=== PATIENT | male | born 1960 | race Caucasian/White ===

== ENCOUNTER 2018-08-04 11:01 | Inpatient (IN) | payer OTHER ==
[2018-08-04] VITALS (13 sets, daily range): BP systolic 124–154; BP diastolic 73–83
[~2018-08-04] VITALS: Ht 175.3 cm; Wt 93.3 kg
[~2018-08-04 11:01] MED LIST: ASPIR 8181 M1 PO; CIPROFLOXACIN500 M1 PO; FLOMAX0.4 MG PO; METFORMIN HCL500 MG PO; PERCOCET 5-3251 EACH PO
--- NOTE | 2018-08-04 11:14 | NUR ---
SEE STEMI FLOW SHEET
[2018-08-04 11:20] LABS: ABSOLUTE BASOPHILS 0.1 thou/uL (0.0-0.2); ABSOLUTE EOSINOPHILS 0.1 thou/uL (0.0-0.7); ABSOLUTE MONOCYTES 0.9 thou/uL (0.0-1.2); ABSOLUTE NEUTROPHILS 5.5 thou/uL (1.6-8.1); EOSINOPHILS 1.1 %; HEMATOCRIT 43.4 % (42.0-52.0); HEMOGLOBIN 13.9 gm/dL (14.0-18.0); LYMPHOCYTES 23.6 %; MCH 20.4 pg (26.0-34.0); MCV 63.8 fL (80.0-100.0); MONOCYTES 10.4 %; MPV 9.5 fl. (7.2-11.1); NUCLEATED RBCS 0 /100WBC; PLATELET COUNT* 240 thou/uL (150-400); POLYS 63.9 %; RBC 6.81 mil/uL (4.50-6.00); RDW-CV 15.3 % (10.5-14.5); WBC 8.6 thou/uL (4.0-11.0)
--- NOTE | 2018-08-04 11:23 | NUR ---
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 ATTEMPT TO CONTACT JUAN DANIEL, DAUGHTER, AT [phone] WAS MADE BUT UNSUCCESSFUL.
--- NOTE | 2018-08-04 11:26 | NUR ---
PT WENT TO BOILER ASSISTANT OPERATOR AT 1125 WITH SOLITARIO GÓMEZ AND BOILER ASSISTANT OPERATOR RN.
[2018-08-04 11:28] LABS: ANION GAP 16 mmol/L (7-16); BUN 28 mg/dL (7-18); CHLORIDE 99 mmol/L (98-107); CO2 21 mmol/L (21-32); CREATININE 1.5 mg/dL (0.6-1.3); GLUCOSE 181 mg/dL (70-99); POTASSIUM 3.3 mmol/L (3.5-5.1); SODIUM 136 mmol/L (136-145)
[2018-08-04 11:29] LABS: APTT 23.9 Seconds (25.0-31.3); PROTIME 10.3 Seconds (9.20-11.50)
[2018-08-04 11:35] LABS: ALBUMIN 4.4 g/dL (3.4-5.0); ALKALINE PHOSPHATASE 61 U/L (46-116); CHOLESTEROL 234 mg/dL (<200); HDL CHOLESTEROL 50 mg/dL (>40); LDL CHOLESTEROL 166 mg/dL (<100); SERUM ASSESSMENT Clear; SGOT 17 U/L (15-37); SGPT 35 U/L (30-65); TC:HDL 4.7 Ratio (Not establshd); TOTAL BILIRUBIN 0.4 mg/dL (<0.1-1.0); TOTAL PROTEIN 7.6 g/dL (6.4-8.2); TRIGLYCERIDE 94 mg/dL (<150); TROPONIN-I LEVEL <0.06 ng/mL (<0.06); VLDL 19 mg/dL (<40)
[2018-08-04 12:10] LABS: PLATELET ESTIMATE ADEQUATE
[2018-08-04 12:11] LABS: GIANT PLATELETS FEW; POLYCHROMASIA Occasional
[2018-08-04 12:14] LABS: OVALOCYTES 1+
[2018-08-04 12:16] LABS: HYPOCHROMASIA 2+; SCHISTOCYTES Occasional
[2018-08-04 12:17] LABS: LARGE PLATELETS OCCASIONAL; TARGET CELLS 1+
[2018-08-04 12:21] LABS: POIKILOCYTOSIS 1+
--- NOTE | 2018-08-04 15:41 | EKG ---
[place] [address] ELECTROCARDIOGRAM REPORT Name: VALERI DYER Room: [address] ADM IN M.R.#: [id number] Admission: 08/04/18 Attend Phys: Reddy Robin MD Discharge: Date of : 62 Report #: [id number] THIS REPORT FOR: //name// [facility] ED Test Date: 2018-08-04 Test Time: 11:04:08 Pat Name: VALERI DYER Department: Room: [facility] Gender: M Access Specialist: TP : 1960 Requested By: Daly Polanco Order Number: [id number] MD: Raúl Cedillo Measurements Intervals [place] Rate: 155 P: 0 MA: QRS: -28 QRSD: 97 T: 57 QT: 301 QTc: 484 Interpretive Statements Supraventricular tachycardia Borderline left axis deviation Borderline low voltage, extremity leads Anteroseptal infarct, old ST depression, probably rate related Baseline wander in lead(s) V3 Compared to ECG 04/21/2016 23:54:07 ST (T wave) deviation now present Sinus rhythm no longer present Myocardial infarct finding still present Electronically Signed On 08-04-2018 15:41:30 ROOM SERVER by Raúl Cedillo [email or web address] <ELECTRONICALLY SIGNED> By: Raúl Cedillo MD, [facility] 08/04/18 1541 1104 1104 Raúl Cedillo MD, [facility] /EPI
--- NOTE | 2018-08-04 18:35 | CARD ---
[address] [address] CARDIAC CATH REPORT Name: VALERI DYER Room: [facility] IN .R.#: [id number] Admission: 08/04/18 Attend Phys: Reddy Robin MD Discharge: Date of : 62 Report #: [id number] THIS REPORT FOR: //name// APPROVED REPORT Study performed: 08/04/2018 11:19:27 Patient Details Patient Status: ED Room #: The patient is a 58 year-old male Event Personnel Lupe Guzman, Brittany Beyer RN Monitor, Omayra Kulkarni RN RN, Reddy Robin Deputy Sheriff/Investigator, , Raúl Cedillo Cryptographic Clerk Procedures Performed Left Heart Catheterization, PTCA with Stenting Indication Abnormal ECG, Chest pain Risk Factors Coronary Artery Disease Previous Procedures/Diagnoses Previous PCI Admission/Lab Medications/Medications given during procedure Aspirin, Glycoprotein IllbIlla Inhibitors, Heparin Unfract. Procedure Narrative The patient was brought emergently to the Cardiac Catheterization Laboratory and was prepped and draped in a sterile manner. The right femoral was infiltrated with 1% Lidocaine subcutaneous anesthesia. A 6Fr. Nabb Sheath sheath was inserted into the right femoral artery. Coronary angiography was performed using coronary diagnostic catheters. The right coronary system was accessed and visualized with a 6Fr JR4 catheter. The left coronary system was accessed and visualized with a 6Fr JL4 catheter. The left ventricle was accessed and visualized with a 6Fr Pigtail catheter. Left ventricular/Aortic Valve gradient assessed via catheter pullback. Left ventriculogram was performed in NICOLE projection. Closure device was deployed with a 6 Fr Angioseal STS 6Fr. The patient tolerated [place] [address] CARDIAC CATH REPORT Name: VALERI DYER Room: [address] IN [facility]#: [id number] Admission: 08/04/18 Attend Phys: Reddy Robin MD Discharge: Date of : 62 Report #: [id number] there were no complications associated with the procedure. There was no hematoma. Patient appeared to be in a supraventricular tachycardia at the start of the procedure. The patient was given 150 mg of IV amiodarone and converted to nsr. Intraoperative Conscious Sedation Fentanyl mcg Versed mg Dose: 1104 mGy Contrast Type and Amount: Omnipaque 300 ml Coronary Angiography The patient's coronary anatomy is co- dominant. Diagnostic Cath Left Main osital 40% LAD stented proximal, longer region, 30-40% instent stenosis, proximally, mid LAD diffuse 50-70%, apical lad gives collaterals to RCA Diagonal 1 medium sized Circumflex mid body 70%, medium sized vessel OM1 focal 70%, small vessel OM2 very small 90% proximally Right Coronary 95% proximal stenosis,mid 80%, distal 95% into pda R PDA 95% RPLV mild disease Left Ventriculography The left ventricle is normal in size with normal contractility. The left ventricular ejection fraction is estimated to be >55%. Left ventricular wall motion abnormalities are present. There is 4+ mitral insufficiency. Hemodynamics The aortic pressure is 82/61 mmHg with a mean of 66 mmHg. The left ventricular pressure is 118/10 mmHg with a mean of mmHg. The left ventricular end diastolic pressure is 19 mmHg. There was no gradient across the aortic valve upon pullback. Pullback from the left ventricle to the aorta revealed no gradient across the aortic valve. PCI Technique Lesion Anticoagulation was achieved with Heparin. bolus of IV aggrastat given Patient was preloaded with Brillinta. Percutaneous coronary intervention was performed on the distal right coronary artery. The lesion stenosis prior to intervention was 90%% with STEPHEN 3 [place] [address] CARDIAC CATH REPORT Name: VALERI DYER Room: [address] IN [facility]#: [id number] Admission: 08/04/18 Attend Phys: Reddy Robin MD Discharge: Date of : 62 Report #: [id number] 6FR JCR 4 100CM Guide Catheter was used to engage the RCA ostium. A IG: BMW 190cm Interventional Guidewire was used to cross the lesion. BALLOON DILATION A Balloon catheter Trek RX 2.5 X 8 was inserted and inflated up to 12.00atm for 14seconds. Repeat angiography revealed the following post-dilatation results: 40% stenosis. Additional Inflation: 16.00atm for 18seconds. STENT DEPLOYMENT A drug-eluting stent Xience Columba 2.5X15mm was inserted and inflated up to 16.00atm for 8seconds. Repeat angiography revealed the following post-stent deployment results: 0% stenosis. Final angiography reveals 0 % stenosis with STEPHEN 3 flow. PCI Technique Lesion 2 Percutaneous Coronary Intervention was performed on the mid right coronary artery. Patient was preloaded with Brillinta. Percutaneous coronary intervention was performed on the mid right coronary artery. The lesion stenosis prior to intervention was 80% with STEPHEN 3 flow. A 6 fr jcr4 Guide Catheter was used to engage the rca ostium. A bmw Interventional Guidewire was used to cross the lesion. Balloon Dilation A Balloon catheter Trek RX 2.5 X 8 was inserted and inflated up to 12.00atm for 9seconds. Repeat angiography revealed the following post-dilatation results: 30% stenosis. Stent Deployment A drug-eluting stent Xience Columba 3.0X15mm was inserted and inflated up to 12.00atm for 9seconds. Repeat angiography revealed the following post-stent deployment results: 0% stenosis. Final angiography reveals 0 % stenosis with STEPHEN 3 flow. PCI Technique Lesion 3 Percutaneous Coronary Intervention was performed on the proximal right coronary artery. Patient was preloaded with Brillinta. Percutaneous coronary intervention was performed on the proximal right coronary artery. The lesion stenosis prior to intervention was 90% with STEPHEN 3 flow. A jcr4 Guide Catheter was used to engage the rca ostium. A bmw Interventional Guidewire was used to cross the lesion. [address] [address] CARDIAC CATH REPORT Name: VALERI DYER Room: [facility] IN M.R.#: [id number] Admission: 08/04/18 Attend Phys: Reddy Robin MD Discharge: Date of : 62 Report #: [id number] Balloon Dilation A Balloon catheter Xience Columba 2.5X15mm was inserted and inflated up to 10.00atm for 16seconds. Repeat angiography revealed the following post-dilatation results: 40% stenosis. Stent Deployment A drug-eluting stent Xience Columba 3.0X12mm was inserted and inflated up to 10.00atm for 16seconds. Repeat angiography revealed the following post-stent deployment results: 0% stenosis. Additional Inflation: 15.00atm for 18seconds. Final angiography reveals 0 % stenosis with STEPHEN 3 flow. Conclusion 1. SVT ,converted in laborer pullet farm (IV amiodarone) 2. NSTEMI 3. severe disease of RCA 4. patent stent proximal LAD with moderate instent stenosis 5. severe appering mitral regurgitation 6. codominant circumflex with severe disease 7. successful placement of 3 drug eluting stents in the rca Recommendations Cardiac Rehabilitation Referral Aggressive Medical Therapy Medications Administered Ticagrelor Diagnostic Cath Approved by: Reddy Robin MD Date/Time: <ELECTRONICALLY SIGNED> By: Raúl Cedillo MD, FACC 08/04/181834 34 34Raúl Cedillo MD, FACC /INF
[2018-08-05] VITALS (14 sets, daily range): BP systolic 105–135; BP diastolic 61–77
[2018-08-05 04:23] LABS: ABSOLUTE EOSINOPHILS 0.1 thou/uL (0.0-0.7); ABSOLUTE LYMPHOCYTES 0.7 thou/uL (0.8-5.3); ABSOLUTE MONOCYTES 0.5 thou/uL (0.0-1.2); ABSOLUTE NEUTROPHILS 5.2 thou/uL (1.6-8.1); BASOPHILS 0.4 %; EOSINOPHILS 1.5 %; HEMATOCRIT 36.8 % (42.0-52.0); LYMPHOCYTES 10.7 %; MCH 20.6 pg (26.0-34.0); MCHC 32.7 g/dL (28.0-37.0); MCV 63.2 fL (80.0-100.0); MONOCYTES 8.4 %; MPV 9.1 fl. (7.2-11.1); NUCLEATED RBCS 0 /100WBC; PLATELET COUNT* 170 thou/uL (150-400); RBC 5.82 mil/uL (4.50-6.00); RDW-CV 15.2 % (10.5-14.5); WBC 6.5 thou/uL (4.0-11.0)
[2018-08-05 04:51] LABS: CALCIUM 8.1 mg/dL (8.5-10.1); CREATININE 0.9 mg/dL (0.6-1.3); POTASSIUM 4.1 mmol/L (3.5-5.1)
[2018-08-05 04:55] LABS: TROPONIN-I LEVEL 11.97 ng/mL (<0.06)
--- NOTE | 2018-08-05 05:37 | NUR ---
PATIENT PROGRESSING TOWARDS GOALS. NO ACUTE HEMODYNAMIC CHANGES OVERNIGHT. DENIES PAIN, N &V. PT RIGHT GROIN SITE INTACT NO HEMATOMA PRESENT. SALINE LOCKED @ MIDNIGHT PER DR. BRAGA. NC IN PLACE @ 2L PER OXYGEN PROTOCOL. TROPONIN ELEVATED THIS A.M WAS EXPECTED. PT VOIDS PER URNAL, UO ADEQUATE. NO VOICED CONCERNS AT THIS TIME. BED TO LOWEST POSITION. CALL LIGHT IN PLACE. WILL CONTINUE TO MONITOR.
[2018-08-05 05:51] LABS: HYPOCHROMASIA 2+; MICROCYTES 2+; POLYCHROMASIA 1+
[2018-08-05 05:52] LABS: ANISOCYTOSIS 2+; POIKILOCYTOSIS 1+
--- NOTE | 2018-08-05 11:34 | 2DMMODE ---
[place] [address] 2 D/M-MODE ECHOCARDIOGRAM Name: VALERI DYER Room: [address] IN [facility]#: [id number] Admission: 08/04/18 Attend Phys: Reddy Robin, Discharge: Date of : 62 Date of Service: 08/05/18 1134 Report #: [id number] THIS REPORT FOR: //name// APPROVED REPORT Study performed: 08/05/2018 10:06:34 EXAM: Comprehensive 2D, Doppler, and color-flow Echocardiogram Patient Location: In-Patient Room #: [facility] Status: routine BSA: 2.09 HR: 69 bpm BP: 124/67 mmHg Rhythm: NSR Other Information Study Quality: GoodFair Technically limited study due to bedside. Indications Chest Pain 2D Dimensions IVSd: 15.21 (7-11mm) LVOT Diam: 21.95 (18-24mm) LVDd: 48.88 mm PWd: 13.26 (7-11mm) Ascending Ao: 33.11 (22-36mm) LVDs: 29.17 (25-40mm) Aortic Root: 36.83 mm Volumes Left Atrial Volume (Systole) LA ESV Index: 30.60 mL/m2 Aortic Valve AoV Peak Timoteo.: 2.05 m/s AO Peak Gr.: 16.76 mmHg LVOT Max P.18 mmHg AO Mean Gr.: 10.03 mmHg LVOT Mean P.96 mmHg LVOT Max V: 1.34 m/s AO V2 VTI: 38.99 cm LVOT Mean V: 0.93 m/s FORTINO (VTI): 2.86 cm2 LVOT V1 VTI: 29.45 cm Mitral Valve E/A Ratio: 1.65 MV Decel. Time: 174.04 [place] [address] 2 D/M-MODE ECHOCARDIOGRAM Name: VALERI DYER Room: [facility] IN .R.#: [id number] Admission: 08/04/18 Attend Phys: Reddy Robin, Discharge: Date of : 62 Date of Service: 08/05/18 1134 Report #: [id number] MV E Max Timoteo.: 0.83 m/s MV PHT: 50.47 ms MVA (PHT): 4.36 cm2 TDI E/Lateral E': 6.92 E/Medial E': 9.22 Medial E' Timoteo.: 0.09 m/s Lateral E' Timoteo.: 0.12 m/s Pulmonary Valve PV Peak Timoteo.: 0.96 m/s PV Peak Gr.: 3.66 mmHg Tricuspid Valve RAP Estimate: 5.00 mmHg TR Peak Gr.: 22.72 mmHg RVSP: 27.00 mmHg PA Pressure: 27.00 mmHg Left Ventricle The left ventricle is normal size. There is normal LV segmental wall motion with exception of mild basal inferior hypokinesis Moderate concentric left ventricular hypertrophy. Left ventricular systolic function is normal. The left ventricular ejection fraction is within the normal range. LVEF is 60%. The left ventricular diastolic function is normal. Right Ventricle The right ventricle is normal size. The right ventricular systolic function is normal. Atria Left atrium is moderately dilated. The right atrium size is normal. Aortic Valve Aortic valve leaflets are sclerotic with decreased opening. No aortic regurgitation is present. Mild to moderate aortic stenosis. Mitral Valve The mitral valve is normal in structure. Mild mitral regurgitation. No evidence of mitral valve stenosis. Tricuspid Valve The tricuspid valve is normal in structure. Trace tricuspid regurgitation. No pulmonary hypertension[place] [address] 2 D/M-MODE ECHOCARDIOGRAM Name: AKUAJULIANNEVALERI Duran Mariposa Room: [address] IN [facility]#: [id number] Admission: 08/04/18 Attend Phys: Reddy Robin, Discharge: Date of : 62 Date of Service: 08/05/18 1134 Report #: [id number] The pulmonary valve is normal in structure. There is no pulmonic valvular regurgitation. Great Vessels The aortic root is normal in size. IVC is normal in size and collapses >50% with inspiration. Pericardium There is no pericardial effusion. <Conclusion> LVEF is 60%. There is normal LV segmental wall motion with exception of mild basal inferior hypokinesis Moderate concentric left ventricular hypertrophy. Left atrium is moderately dilated. Aortic valve leaflets are sclerotic with decreased opening. Mild to moderate aortic stenosis. No aortic regurgitation is present. No evidence of mitral valve stenosis. There is no mitral valve regurgitation noted. Mild mitral regurgitation. <ELECTRONICALLY SIGNED> By: Reddy Robin MD, FACC 08/05/18 1134 1134 1134 Reddy Robin MD, FACC /INF
--- NOTE | 2018-08-05 13:47 | EKG ---
[place] [address] ELECTROCARDIOGRAM REPORT Name: VALERI DYER Room: [address] ADM IN M.R.#: [id number] Admission: 08/04/18 Attend Phys: Reddy Robin MD Discharge: Date of : 62 Report #: [id number] THIS REPORT FOR: //name// [facility] Test Date: 2018-08-05 Test Time: 09:48:19 Pat Name: VALERI DYER Department: Room: [address] Gender: M Body Worker: : 1960 Requested By: Reddy Robin Order Number: [id number] Reading MD: Reddy Robin Measurements Intervals [place] Rate: 65 P: 7 [place]: 188 QRS: -61 QRSD: 116 T: 29 QT: 422 QTc: 439 Interpretive Statements Sinus rhythm Left anterior fascicular block Compared to ECG 08/04/2018 11:04:08 Left anterior fascicular block now present Supraventricular tachycardia no longer present Myocardial infarct finding no longer present ST (T wave) deviation no longer present Electronically Signed On 08-05-2018 13:47:52 GREEN CHAIN OFF BEARER by Reddy Robin [email or web address] <ELECTRONICALLY SIGNED> By: Reddy Robin MD, FACC 08/05/18 1347 0948 0948 Reddy Robin MD, FAC /EPI
--- NOTE | 2018-08-05 16:20 | NUR ---
PT DENIES CHEST PAIN OR SHORTNESS OF AIR. PT ON ROOM ROOM AIR SATTING >95%. VSS. AFEBRILE. VOIDING PER URINAL. PT SAT IN CHAIR FOR BREAKFAST. PT ENCOURAGED TO AMBULATE. PT REPORTS HE DOES NOT TAKE FLOMAX ANY MORE. HOME MEDICATION LIST UPDATED.
[2018-08-05 21:06] LABS: GLYCOHEMOGLOBIN (HGB A1C) 7.4 % (4.8-5.6)
[2018-08-06] VITALS: BP 110/67
[2018-08-06 04:00] VITALS: BP 101/59
--- NOTE | 2018-08-06 04:59 | NUR ---
ASSUMED CARE OF PT AFTER REPORT AT 1930. PT A&OX4. VS. PHYSICAL ASSESSMENT COMPLETED AND CHARTED. PT ON RA WITH 95% O2 SAT. PT TRACING SR ON TELE. PT UP ADLIB TO RESTROOM. POST CATH SITE TO RIGHT GROIN CLEAN, DRY & INTACT. MINOR BRUISING NOTED. DENIES ANY PAIN OR SOA. PT RESTED WELL ON BED. HOURLY ROUNDING OBSERVED. CALL LIGHT WITHIN REACH.
[2018-08-06 07:30] VITALS: BP 114/65
[2018-08-06 09:45] VITALS: BP 108/62
[2018-08-06 09:53] VITALS: BP 108/62
[2018-08-06] MEDS ORDERED: ATORVASTATIN CA40 MG PO (11:33)
[2018-08-06] MEDS ORDERED: CARVEDILOL3.125 MG PO (11:35)
[2018-08-06] MEDS ORDERED: ZETIA10 MG PO (11:35)
[2018-08-06] MEDS ORDERED: LISINOPRIL5 MG PO (11:36)
[2018-08-06] MEDS ORDERED: NITROGLYCERIN0.4 MG SUBLING (11:38)
[2018-08-06] MEDS ORDERED: BRILINTA90 MG PO (11:38)
--- NOTE | 2018-08-06 11:42 | NUR ---
MET WITH PT TO DISCUSS HOME SITUATION/DC PLANNING. PT LIVES WITH , WORKS AND IS INDEPENDENT AND ACTIVE. STATES WAS AT THE GYM WHEN STARTED HAVING SYMPTOMS. PT DENIES ANY DC NEEDS AND PLANS TO GO HOME TODAY. HE FOLLOWS WITH DR NAVA FOR PCP.
--- NOTE | 2018-08-06 12:29 | NUR ---
RECEIVED DISCHARGE ORDERS PER CARDIOLOGY. HOSPITALIST OK WITH DC TODAY. IV DISCONTINUED. CORPORATE BANKING OFFICER REMOVED AND RETURNED TO NURSE'S DESK. EDUCATED THE PT ON F/U APPT WITH CARDIOLOGY AND HIS PRIMARY. EDUCATED ON HOME MEDICATIONS. NEW SCRIPTS GIVEN WITH MED INFORMATION SHEETS. PATIENT AND HIS SPOUSE DENY ANY QUESTIONS OR CONCERNS AT DISCHARGE. HE IS LEAVING VIA AMBULATORY PER HIS REQUEST ACCOMPANIED BY NURSING STAFF AND HIS .
--- NOTE | 2018-08-13 12:44 | H ---
[place] [address] HISTORY AND PHYSICAL Name: VLAERI DYER Room: [address] IN M.R.#: [id number] Admission: 08/04/18 Attend Phys: Reddy Robin MD Discharge: 08/06/18 Date of : 62 Report #: [id number] THIS REPORT FOR: //name// CC: DAVI physician/PCP Reddy Robin DATE OF SERVICE: 08/04/2018 CHIEF COMPLAINT: Chest pain. HISTORY OF PRESENT ILLNESS: The patient is a 58-year-old man with a prior history of anterior UT, who presented via ambulance to [facility] with acute onset of chest pressure, dizziness and lightheadedness. He was noted to be in a supraventricular tachycardia with narrow complexes. The heart rates in the 160s on presentation, but had diffuse ST segment depression and ST elevation in lead AVR. Given his continued symptoms of angina, we elected to proceed directly with an urgent cardiac catheterization, which demonstrated patency of a previously placed stent to his left anterior descending coronary artery, but severe disease in his [place] right coronary artery and fairly significant mitral regurgitation. Clinically, the patient has been having chest pain off and on for the last few weeks. He has been compliant with his aspirin, but is not currently on any statin therapy, but he is treated for type 2 diabetes. His gear [facility]ter [facility] He reports that he has not really followed up with him in the last few years or so. He has been short of breath with activity. He denies orthopnea, PND or weight gain. PAST MEDICAL HISTORY: He has a history of diabetes, untreated sleep apnea, hyperlipidemia, which currently is not treated and coronary artery disease and remote UT. 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 FAMILY HISTORY: Positive for heart disease. REVIEW OF SYSTEMS: GASTROINTESTINAL: No nausea or vomiting. ALLERGIES: He denies any contrast allergies. HEMATOLOGIC: No anemia or bleeding disorders. RENAL: No history [place] [address] HISTORY AND PHYSICAL Name: VALERI DYER Room: [address] IN [facility]#: [id number] Admission: 08/04/18 Attend Phys: Reddy Robin MD Discharge: 08/06/18 Date of : 62 Report #: [id number] ENDOCRINE: Positive diabetes, positive hyperlipidemia. NEUROLOGIC: Denies headaches, blurry vision or slurred speech. GENERAL: No fevers or chills. PULMONARY: As above. No wheezing or cough. MEDICATIONS: He takes aspirin and Jardiance. PHYSICAL EXAMINATION: VITAL SIGNS: His blood pressure is in the one-teens/60s and a narrow complex tachycardia, heart rate in the 130s to 160s. GENERAL: This is an anxious middle-aged male. He is alert, though he is in moderate distress. HEENT: There is no evidence of facial asymmetry. Oral mucosa is moist. Tongue is midline. NECK: Supple, no jugular venous distention. Upstrokes are normal. CARDIOVASCULAR: Irregular, tachycardic. I cannot hear an S3. There is an apical murmur. LUNGS: Diminished breath sounds, but clear to auscultation. ABDOMEN: Soft, nontender. EXTREMITIES: No peripheral edema. Pulses, radial and dorsalis pedis pulses are symmetric and normal. ECG as noted above. LABORATORY DATA: Pending. IMPRESSION AND PLAN: 1. Non-ST elevation myocardial infarction. 2. Mitral regurgitation. 3. Coronary artery disease. 4. Supraventricular tachycardia, acute. 5. Respiratory insufficiency. At this point in time, we will proceed with treatment of his coronary artery disease to his right coronary artery and further evaluation with echocardiographic evaluation of his mitral valve apparatus will be undertaken and further treatment will be based on this. We will survey his lipids and treat accordingly. <ELECTRONICALLY SIGNED> By: Reddy Robin MD, FACC 08/13/18 1244 1211 1335Reddy Robin MD, FACC /nt
== END 2018-08-06 12:35 | disposition home or self-care (01) | DRG 246 ==
LOC: M.ERS 11:01 → M.CL 11:01 → M.ICU 11:23 → M.TBA-CV 11:23 → M.2W 11:23 → M.ICU 12:03 → M.2W 08-05 18:35
PROVIDERS: Personal Emergency Response Attendant; ADMIT Internal Medicine Cardiovascular Disease
PROC: 027036Z Dilation of Coronary Artery, One Artery with Three Drug-eluting Intraluminal Devices, Percutaneous Approach (ICD-10-PCS; principal; 2018-08-04)
PROC: 4A023N7 Measurement of Cardiac Sampling and Pressure, Left Heart, Percutaneous Approach (ICD-10-PCS; principal; 2018-08-04)
PROC: B2151ZZ Fluoroscopy of Left Heart using Low Osmolar Contrast (ICD-10-PCS; principal; 2018-08-04)
PROC: B2111ZZ Fluoroscopy of Multiple Coronary Arteries using Low Osmolar Contrast (ICD-10-PCS; principal; 2018-08-04)
DX: I21.4 Non-ST elevation (NSTEMI) myocardial infarction (principal); I50.31 Acute diastolic (congestive) heart failure; I47.1 Supraventricular tachycardia; G72.0 Drug-induced myopathy; E11.9 Type 2 diabetes mellitus without complications; E78.5 Hyperlipidemia, unspecified; I34.0 Nonrheumatic mitral (valve) insufficiency; R06.89 Other abnormalities of breathing; I25.10 Atherosclerotic heart disease of native coronary artery without angina pectoris; E66.9 Obesity, unspecified; I25.5 Ischemic cardiomyopathy; T50.995A Adverse effect of other drugs, medicaments and biological substances, initial encounter; I25.2 Old myocardial infarction; Z82.49 Family history of ischemic heart disease and other diseases of the circulatory system; Z95.5 Presence of coronary angioplasty implant and graft; Z79.82 Long term (current) use of aspirin; Z79.899 Other long term (current) drug therapy; Z68.30 Body mass index [BMI] 30.0-30.9, adult

== ENCOUNTER 2018-08-14 20:41 | Observation (INO) | payer OTHER ==
[~2018-08-14] VITALS: Ht 175.3 cm; Wt 94.8 kg
--- NOTE | ~2018-08-14 | CON ---
[address] [address] CONSULTATION Name: MANISHAVALERI Mariposa Room: [address] M.R.#: [id number] Admission: 08/14/18 Attend Phys: Maury Palencia MD Discharge: Date of : 62 Report #: [id number] THIS REPORT FOR: //name// CC: Maury De La Torre REQUESTING PHYSICIAN: Maury Palencia MD PRIMARY CARE PHYSICIAN: Freddie De La Torre MD CHIEF COMPLAINT: Palpitations. HISTORY OF PRESENT ILLNESS: The patient is a 58-year-old man who approximately 2 weeks ago had a STEMI requiring PCI to his right coronary artery in the acute setting. We are asked to see him because he had some symptoms of significant palpitation, but not chest pain that brought him to the Emergency Room. The patient had taken his usual medications, but without food. Also, he had drank more than his usual amount of coffee per day and had onset of resting palpitations. They were associated without chest pain or shortness of breath. He was worried though that he was having another heart attack. He presented to the Emergency Room, was noted to be in sinus rhythm. His ST segments were normal. He did have frequent PVCs, but no evidence of SVT or nonsustained ventricular tachycardia on telemetry monitoring overnight. He was mildly hypokalemic and was given potassium replacement. He did not take any diuretics, but he is on diabetic therapy with Jardiance. This morning, he is asymptomatic. PAST MEDICAL HISTORY: 1. Inferior STEMI. He has previously placed stents in the LAD, which are widely patent. 2. Hypertension, hyperlipidemia, diabetes. HOME MEDICATIONS: Include atorvastatin 40 mg daily, Brilinta 90 mg p.o. b.i.d., lisinopril 5 mg daily, Zetia 10 mg daily, Jardiance daily. ALLERGIES: He has no known drug allergies. SOCIAL HISTORY: He is nonsmoker, . REVIEW OF SYSTEMS: GENERAL: No fevers or chills. PULMONARY: No wheezing or cough. HEMATOLOGIC: No anemia or bleeding disorders. MUSCULOSKELETAL: No falls. NEUROLOGIC: No headaches, blurry vision, slurred speech, numbness, weakness [place] [address] CONSULTATION Name: VALERI DYER Room: [address]#: [id number] Admission: 08/14/18 Attend Phys: Maury Palencia MD Discharge: Date of : 62 Report #: [id number] PHYSICAL EXAMINATION: VITAL SIGNS: Blood pressure is 116/65, pulse is 97, sinus rhythm, temperature 36.8, respirations 19, and O2 sats 97% on room air. GENERAL: A pleasant adult male. He is alert, in no apparent distress. HEENT: Eyes: EOMs are intact. No facial asymmetry. NECK: Supple. No jugular venous distention. CARDIOVASCULAR: Regular. I cannot hear a murmur or S3. LUNGS: Clear to auscultation. ABDOMEN: Soft, nontender, nondistended. EXTREMITIES: No peripheral edema. SKIN: Warm and dry. PSYCHIATRIC: The patient has appropriate mood and affect. LABORATORY DATA: Potassium is 4.2. INR is 1.0. Hemoglobin is 13.6. Chest x-ray shows no acute cardiopulmonary abnormality. Echocardiogram 08/04/2018, ejection fraction was 60%, mild inferior hypokinesis, mild aortic stenosis. IMPRESSION AND PLAN: 1. Symptomatic premature ventricular contractions. I would continue with his current medical therapy. He was mildly hypokalemic, which may have been playing a role. 2. Coronary artery disease. He is ruled out for myocardial infarction and he reports no angina. We will continue with current medical therapy including Brilinta. 3. Mild aortic valve stenosis. 4. Diabetes mellitus. I would continue with Jardiance but I will put him on a low dose of potassium and instructed him to have potassium level checked. I instructed him to monitor his caffeine intake because this is a diuretic as well. By: 1210 1808Reddy Robin MD, FACC /nt
[~2018-08-14 20:41] MED LIST changes: +ATORVASTATIN CA40 MG PO; +BRILINTA90 MG PO; +CARVEDILOL3.125 MG PO; +LISINOPRIL5 MG PO; +NITROGLYCERIN0.4 MG SUBLING; +ZETIA10 MG PO
[2018-08-14 20:44] VITALS: BP 180/89
[2018-08-14] MEDS ORDERED: JARDIANCE10 MG PO (20:51)
[2018-08-14 21:13] LABS: ABSOLUTE EOSINOPHILS 0.2 thou/uL (0.0-0.7); ABSOLUTE LYMPHOCYTES 1.2 thou/uL (0.8-5.3); ABSOLUTE MONOCYTES 0.7 thou/uL (0.0-1.2); ABSOLUTE NEUTROPHILS 4.5 thou/uL (1.6-8.1); BASOPHILS 0.7 %; EOSINOPHILS 2.4 %; HEMATOCRIT 41.7 % (42.0-52.0); HEMOGLOBIN 13.6 gm/dL (14.0-18.0); LYMPHOCYTES 18.3 %; MCH 20.5 pg (26.0-34.0); MCHC 32.8 g/dL (28.0-37.0); MCV 62.5 fL (80.0-100.0); MONOCYTES 11.2 %; NUCLEATED RBCS 0 /100WBC; PLATELET COUNT* 208 thou/uL (150-400); POLYS 67.4 %; RBC 6.67 mil/uL (4.50-6.00); WBC 6.7 thou/uL (4.0-11.0)
[2018-08-14 21:24] LABS: ALBUMIN 4.4 g/dL (3.4-5.0); CALCIUM 9.3 mg/dL (8.5-10.1); CREATININE 1.3 mg/dL (0.6-1.3); POTASSIUM 3.4 mmol/L (3.5-5.1); TOTAL BILIRUBIN 0.3 mg/dL (<0.1-1.0); TROPONIN-I LEVEL 0.07 ng/mL (<0.06)
[2018-08-14 22:35] LABS: ANISOCYTOSIS Occasional; MICROCYTES 3+; OVALOCYTES Occasional
[2018-08-14 22:36] LABS: PLATELET ESTIMATE ADEQUATE
[2018-08-14 23:35] VITALS: BP 140/81
[2018-08-14 23:50] VITALS: BP 143/77
--- NOTE | 2018-08-15 00:47 | NUR ---
PT ADMITTED TO ROOM 213 AT 2345 FOR DYSPNEA AND PALPITATIONS. PT REPORTS WATCHING IntY GAME AND FELT HIS HEART SKIPPING BEATS AT 2030. PT HAD RECENT CARDIAC CATHETERIZATION WITH STENTS X 3 TO RCA ON 08/06/18. ESTEFANYINI ON MONITOR. POTASSIUM LEVEL 3.4. PHYSICAN PAGED.
--- NOTE | 2018-08-15 01:06 | NUR ---
NO RESPONSE FROM HOSPITALIST. WASHERETTE MACHINE OPERATOR PAGED REGARDING POTASSIUM LEVEL AT 3.4. BIGEMINY SEEN ON MONITOR. BLOOD PRESSURE AND O2 SAT WITHIN NORMAL LIMITS. NO CHEST TIGHTNESS, PRESSURE OR PAIN NOTED. PT REPORTS FEELING OK EXCEPT FOR HEART SKIPPING BEATS.
--- NOTE | 2018-08-15 01:23 | NUR ---
RECIEVED CALL FROM DR BROWN. INFORMED REGARDING ECTOPY ON MONITOR AND LOW POTASSIUM LEVEL. RECIEVED ORDERS FOR ELECTROLYTE PROTOCOL.
--- NOTE | 2018-08-15 01:35 | NUR ---
PT GIVEN 40 MEQ KCL PO. TEACHING DONE REGARDING ARRYTHMIA'S ASSOCIATED WITH ELECTROLYTE IMBALANCE.
--- NOTE | 2018-08-15 06:33 | NUR ---
PT RECIEVED TOTAL 80MEQ KCL. POTASSIUM LEVEL WITHIN NORMAL LIMITS. PT NO LONGER IN BIGEMINY. OCCASIONAL PVC'S NOTED. DR MAKI UPDATED THIS AM REGARDING EVENTS LEADING TO ADMISSION AND TREATMENT. VITAL SIGNS WITHIN NORMAL LIMITS. WILL CONTINUE TO MONITOR.
[2018-08-15 08:00] VITALS: BP 107/66
--- NOTE | 2018-08-15 11:39 | NUR ---
EAMON REPORT FROM GRAHAM AND ASSUMED CARE OF PT @ 6730.PT IS A/OX4,VSS,TRACING SR WITH PVC ON THE MONITOR.PT REMAINS ON 2L O2.ASSESSMENT CHARTED.IV PATENT AND SALINE LOCKED.PT IS ANXIOUS TO SEE THE OPERATOR SPECIALIST COMMUNICATIONS BUT IS COOPERATIVE WITH NO C/O PAIN.PT IS UP AD RALPH IN ROOM.LEFT RESTING IN BED WITH CALL LIGHT WITHIN REACH.WILL CONTINUE TO MONITOR.
[2018-08-15 12:00] VITALS: BP 116/65
[2018-08-15 13:03] VITALS: BP 116/65
[2018-08-15] MEDS ORDERED: KLOR-CON 1010 MEQ PO (13:07)
--- NOTE | 2018-08-15 13:35 | NUR ---
PT OK FOR DISCHARGE.DISCHARGE PAPERWORK COMPLETED AND GIVEN TO THE PT.SCRIPT GIVEN WITH EDUCATION.IV REMOVED.HEART MONITOR REMOVED AND RETURNED TO NURSING STATION.ALL PERSONAL BELONGINGS PACKED AND TAKEN WITH PT.PT WHEELED OUT BY NURSING STAFF TO PERSONAL VEHICLE.
--- NOTE | 2018-08-15 13:49 | EKG ---
[place] [address] ELECTROCARDIOGRAM REPORT Name: VALERI DYER Room: [address]R.#: [id number] Admission: 08/14/18 Attend Phys: Maury Palencai MD Discharge: Date of : 62 Report #: [id number] THIS REPORT FOR: //name// [facility] ED Test Date: 2018-08-14 Test Time: 20:47:32 Pat Name: VALERI DYER Department: Room: [facility] Gender: M Industrial Machinery Mechanic: Yeny REGAN : 1960 Requested By: Juliette Hickey Order Number: [id number] MD: Reddy Robin Measurements Intervals [place] Rate: 77 P: 29 CA: 190 QRS: -55 QRSD: 106 T: 99 QT: 402 QTc: 455 Interpretive Statements Sinus rhythm LAD, consider left anterior fascicular block Anteroseptal infarct, old Borderline repolarization abnormality Compared to ECG 08/05/2018 09:48:19 Myocardial infarct finding now present Electronically Signed On 08-15-2018 13:49:26 CORROSION ENGINEER by Reddy Robin [email or web address] <ELECTRONICALLY SIGNED> By: Reddy Robin MD, FAC 08/15/18 1349 46 46 Reddy Robin MD, FAC /EPI
== END 2018-08-15 13:28 | disposition home or self-care (01) ==
LOC: M.ERS 20:41 → M.2W 22:36 → M.TBA-ER 22:36 → M.2W 23:19
PROVIDERS: Emergency Medicine; ADMIT Internal Medicine
DX: I49.3 Ventricular premature depolarization (principal); R00.8 Other abnormalities of heart beat; E87.6 Hypokalemia; I25.10 Atherosclerotic heart disease of native coronary artery without angina pectoris; I21.4 Non-ST elevation (NSTEMI) myocardial infarction; I25.5 Ischemic cardiomyopathy; I10 Essential (primary) hypertension; E11.9 Type 2 diabetes mellitus without complications; E78.5 Hyperlipidemia, unspecified; I34.0 Nonrheumatic mitral (valve) insufficiency; I35.0 Nonrheumatic aortic (valve) stenosis; Z79.82 Long term (current) use of aspirin; Z79.899 Other long term (current) drug therapy

== ENCOUNTER 2018-09-09 08:56 | Observation (INO) | payer OTHER ==
[2018-09-09] VITALS (12 sets, daily range): BP systolic 103–152; BP diastolic 63–84
[~2018-09-09] VITALS: Ht 152.4 cm; Wt 87.5 kg
[~2018-09-09 08:56] MED LIST changes: +JARDIANCE10 MG PO; +KLOR-CON 1010 MEQ PO; +PERCOCET PO
[2018-09-09 09:25] LABS: HEMATOCRIT 41.3 % (42.0-52.0); HEMOGLOBIN 13.4 gm/dL (14.0-18.0); MCH 20.6 pg (26.0-34.0); MCHC 32.4 g/dL (28.0-37.0); MCV 63.7 fL (80.0-100.0); MPV 9.4 fl. (7.2-11.1); RBC 6.48 mil/uL (4.50-6.00); RDW-CV 15.3 % (10.5-14.5); WBC 5.3 thou/uL (4.0-11.0)
[2018-09-09 09:39] LABS: APTT 26.1 Seconds (25.0-31.3); PROTIME 10.6 Seconds (9.20-11.50)
[2018-09-09 09:40] LABS: ANION GAP 8 mmol/L (7-16); BUN 19 mg/dL (7-18); CALCIUM 9.1 mg/dL (8.5-10.1); CHLORIDE 99 mmol/L (98-107); CO2 29 mmol/L (21-32); GLUCOSE 169 mg/dL (70-99); POTASSIUM 4.1 mmol/L (3.5-5.1); SODIUM 136 mmol/L (136-145)
[2018-09-09 09:44] LABS: ALBUMIN 4.4 g/dL (3.4-5.0); ALKALINE PHOSPHATASE 62 U/L (46-116); CHOLESTEROL 108 mg/dL (<200); HDL CHOLESTEROL 52 mg/dL (>40); LDL CHOLESTEROL 45 mg/dL (<100); SGOT 28 U/L (15-37); SGPT 56 U/L (30-65); TC:HDL 2.1 Ratio (Not establshd); TOTAL BILIRUBIN 0.8 mg/dL (<0.1-1.0); TOTAL PROTEIN 7.6 g/dL (6.4-8.2); TRIGLYCERIDE 57 mg/dL (<150); VLDL 11 mg/dL (<40)
[2018-09-09 09:51] LABS: SERUM ASSESSMENT Clear
--- NOTE | 2018-09-09 15:26 | NUR ---
REPORT RECEIVED FROM CARDIAC CATH NURSE. PT ARRIVED ON FLOOR AT 1430 WITH . IN BED ON BEDREST FOR 6 HOURS. R GROIN SITE IS INTACT, NO BLEEDING. JUST SORE TO TOUCH. IV FLUID INFUSING AT 100CC PER HOUR . SR ON SOFTWARE ANALYST. LUNCH OFFERED. SCDS IN PLACE. WILL CONTINUE TO MONITOR NEUROVASCULAR STATUS AND VITAL SIGNS.
--- NOTE | 2018-09-09 15:42 | EKG ---
[place] [address] ELECTROCARDIOGRAM REPORT Name: VALERI DYER GEOVANNA Room: [address] M.R.#: [id number] Admission: 09/09/18 Attend Phys: Virgil Goff MD, Discharge: Date of : 62 Report #: [id number] THIS REPORT FOR: //name// [facility] Test Date: 2018-09-09 Test Time: 10:18:49 Pat Name: VALERI DYER Department: Room: [facility] Gender: M Quality Engineer Medical Device: : 1960 Requested By: Virgil Goff Order Number: [id number] Turner MD: Virgil Goff Measurements Intervals [place] Rate: 66 P: -13 [place]: 194 QRS: -63 QRSD: 100 T: -24 QT: 403 QTc: 423 Interpretive Statements Sinus rhythm Left anterior fascicular block Probable anterior infarct, age indeterminate Compared to ECG 08/14/2018 20:47:32 No significant changes Electronically Signed On 09-09-2018 15:41:48 BIOMASS TECHNICIAN by Virgil Goff [email or web address] <ELECTRONICALLY SIGNED> By: Virgil Goff MD, [facility] 09/09/18 1541 1018 1018 Virgil Goff MD, [facility] /EPI
--- NOTE | 2018-09-09 15:44 | EKG ---
[place] [address] ELECTROCARDIOGRAM REPORT Name: VALERI DYER Room: [address] M.R.#: [id number] Admission: 09/09/18 Attend Phys: Virgil Goff MD, Discharge: Date of : 62 Report #: [id number] THIS REPORT FOR: //name// [facility] Test Date: 2018-09-09 Test Time: 13:55:10 Pat Name: VALERI DYER Department: Room: [facility] Gender: M V/Stol Landing Signal Officer: : 1960 Requested By: Virgil Goff Order Number: [id number] Turner MD: Virgil Goff Measurements Intervals [place] Rate: 75 P: -5 [place]: 189 QRS: -60 QRSD: 100 T: -11 QT: 410 QTc: 458 Interpretive Statements Sinus rhythm Left anterior fascicular block Low voltage, extremity leads Abnormal R-wave progression, late transition Compared to ECG 08/14/2018 20:47:32 Low QRS voltage now present Myocardial infarct finding no longer present Electronically Signed On 09-09-2018 15:44:22 HOLTER TECHNICIAN by Virgil Goff [email or web address] <ELECTRONICALLY SIGNED> By: Virgil Goff MD, [facility] 09/09/18 1544 [id number] [id number] Virgil Goff MD, [facility] /EPI
[2018-09-10] VITALS (8 sets, daily range): BP systolic 110–134; BP diastolic 65–72
[2018-09-10 05:42] LABS: HEMATOCRIT 37.7 % (42.0-52.0); HEMOGLOBIN 12.1 gm/dL (14.0-18.0); MCH 20.4 pg (26.0-34.0); MCHC 32.2 g/dL (28.0-37.0); MCV 63.5 fL (80.0-100.0); MPV 9.3 fl. (7.2-11.1); RBC 5.95 mil/uL (4.50-6.00); RDW-CV 15.4 % (10.5-14.5); WBC 5.3 thou/uL (4.0-11.0)
[2018-09-10 05:55] LABS: ALBUMIN 3.7 g/dL (3.4-5.0); CALCIUM 8.5 mg/dL (8.5-10.1); CREATININE 0.9 mg/dL (0.6-1.3); TOTAL BILIRUBIN 0.6 mg/dL (<0.1-1.0); TOTAL PROTEIN 6.5 g/dL (6.4-8.2); TROPONIN-I LEVEL 0.09 ng/mL (<0.06)
--- NOTE | 2018-09-10 10:26 | EKG ---
[place] [address] ELECTROCARDIOGRAM REPORT Name: VALERI DYER Room: [address] M.R.#: [id number] Admission: 09/09/18 Attend Phys: Virgil Goff MD, Discharge: Date of : 62 Report #: [id number] THIS REPORT FOR: //name// [facility] Test Date: 2018-09-10 Test Time: 08:05:56 Pat Name: VALERI DYER Department: Room: [facility] Gender: M Behavioral Therapy Coordinator: : 1960 Requested By: Virgil Goff Order Number: [id number] Reading MD: Reddy Robin Measurements Intervals [place] Rate: 59 P: -11 SC: 211 QRS: -58 QRSD: 111 T: -23 QT: 433 QTc: 429 Interpretive Statements Sinus rhythm Prolonged SC interval Left anterior fascicular block Borderline low voltage, extremity leads Compared to ECG 09/09/2018 13:55:10 First degree AV block now present Electronically Signed On 09-10-2018 10:25:51 ADJUSTER ARBITRATOR by Reddy Robin [email or web address] <ELECTRONICALLY SIGNED> By: Reddy Robin MD, [facility] 09/10/18 1025 4 4 Reddy Robin MD, [facility] /EPI
--- NOTE | 2018-09-10 10:29 | NUR ---
RECEIVED REPORT FROM [facility] NURSE. ASSUMED CARE OF PT AROUND 07. PT A&OX4, VSS. PROGRAM REVIEW DIRECTOR IN PLACE TRACING SR. AM ASSESSMENT AND VITALS COMPLETED CHARTED. IV TO RIGHT AC/FA INTACT AND SALINE LOCKED. PT DENIES PAIN OR DISCOMFORT. RIGHT GROIN CATH SITE CDI, NO HEMATOMA. DRIED OOZING PRESENT ON DRESSING AND MARKED. CARDIIOLOGY PLANNING TO DC PT TODAY. PT AWAITING HEMOGLOBIN A1C RESULTS. LOW FALL PRECAUTIONS IN PLACE. CALL LIGHT IS WITHIN REACH. WCTM.
--- NOTE | 2018-09-10 11:16 | CARD ---
[address] [address] CARDIAC CATH REPORT Name: VALERI DYER Room: [address] M.R.#: [id number] Admission: 09/09/18 Attend Phys: Virgil Goff MD, Discharge: Date of : 62 Report #: [id number] THIS REPORT FOR: //name// APPROVED REPORT Study performed: 09/09/2018 11:26:09 Patient Details The patient is a 58 year-old male Event Personnel Omayra Kulkarni RN Manager [employer] John Molding Plasterer, Hollis Freeman Monitor, Flavio Brown (R) Narcisa Ochoa Jessica RTR Monitor Procedures Performed Left heart catheterization left ventriculography selective coronary arteriography and percutaneous coronary intervention with deployment of drug-eluting stents in the first marginal branch of the circumflex and the proximal circumflex Indication Chest pain, Status post recent inferior infarction Risk Factors Family History, Hypercholesterolemia, Hypertension Previous Procedures/Diagnoses Previous PCI, Previous ND Admission/Lab Medications/Medications given during procedure Angiomax IV 13 mg per kg, Angiomax Drip IV 30.45 ml per hr, Ticagrelor PO 180 mg Procedure Narrative The patient was brought electively to the Cardiac Catheterization Laboratory and was prepped and draped in a sterile manner. The right femoral was infiltrated with subcutaneous anesthesia. A Jackson 6 FR sheath was inserted into the right femoral artery. Coronary angiography was performed using coronary diagnostic catheters. The right coronary system was accessed and visualized with a Diagnostic 6Fr JR4 catheter. The left coronary system was accessed and visualized with a Diagnostic 6Fr JL4 catheter. The left ventricle was accessed and visualized with a Diagnostic 6Fr straight pigtail catheter. Left ventricular/Aortic [place] [address] CARDIAC CATH REPORT Name: VALERI DYER Room: [address] M..#: [id number] Admission: 09/09/18 Attend Phys: Virgil Goff MD, Discharge: Date of : 62 Report #: [id number] catheter pullback. Left ventriculogram was performed in NICOLE projection. Pre-demployment femoral angiogram was performed . Closure device was deployed with a Fr 6Fr angioseal. Hemostasis was obtained with manual pressure following sheath removal without any complications. The patient tolerated the procedure well and there were no complications associated with the procedure. There was no hematoma. Intraoperative Conscious Sedation Sedation start time: 1146 Case end Time: 1239 Fentanyl 50 mcg Versed 2 mg Fluoro Time: 14.7 minutes Dose: DAP 248492 cGycm2 3269 mGy Contrast Type and Amount: Visipaque 500 ml Diagnostic Cath Left Main 30% distal narrowing LAD 30% proximal and mid vessel narrowing with a patent proximal LAD stent Circumflex 80% heavily calcified stenosis of the proximal portion of the circumflex with 75% tubular calcified narrowing of the proximal portion of the first marginal branch Right Coronary 40 percent proximal narrowing with 30% distal narrowing of this dominant vessel with total occlusion of a posterolateral branch with zyls-ia-mondl collaterals filling that posterolateral branch in retrograde fashion Left Ventriculography The left ventricle is normal in size with normal contractility. The left ventricular ejection fraction is estimated to be 60%. Left ventricular wall motion abnormalities are not present. There is no mitral insufficiency. Hemodynamics The aortic pressure is 121/64 mmHg with a mean of 86 mmHg. The left ventricular pressure is 115/1 mmHg with a mean of mmHg. The left ventricular end diastolic pressure is 12 mmHg. There was no gradient across the aortic valve upon pullback. PCI Technique Lesion Anticoagulation was achieved with Angiomax. Percutaneous coronary intervention was performed on the first obtuse marginal branch segment. The lesion stenosis prior to intervention was 75% with STEPHEN 3 flow. A 6F XB LAD 3.5 Guide Catheter was used [place] [address] CARDIAC CATH REPORT Name: VALERI DYER Room: [address] M.R.#: [id number] Admission: 09/09/18 Attend Phys: Virgil Goff MD, Discharge: Date of : 62 Report #: [id number] A BMW 190cm Interventional Guidewire was used to cross the lesion. BALLOON DILATION A Balloon catheter NC Trek RX 2.5 X 12 was inserted and inflated up to 16.00atm for 10seconds. Additional Inflation: 0.00atm for 0seconds. Additional Inflation: 22.00atm for 14seconds. STENT DEPLOYMENT A drug-eluting stent [place] RX Stent 2.68J35wg was inserted and inflated up to 10.00atm for 19seconds. Additional Inflation: 14.00atm for 9seconds. Final angiography reveals 0 % stenosis with STEPHEN 3 flow. PCI Technique Lesion 2 Percutaneous Coronary Intervention was performed on the proximal circumflex artery segment. The lesion stenosis prior to intervention was 80% with STEPHEN 3 flow. A 6F XB LAD 3.5 Guide Catheter was used to engage the ostium. A BMW 190cm Interventional Guidewire was used to cross the lesion. Balloon Dilation A Balloon catheter NC Trek RX 2.25x12 was inserted and inflated up to 16.00atm for 6seconds. Additional Inflation: 20.00atm for 6seconds. Additional Inflation: 22.00atm for 11seconds. Stent Deployment A drug-eluting stent Estuardo RX Stent 2.84S13zu was inserted and inflated up to 12.00atm for 9seconds. Additional Inflation: 16.00atm for 9seconds. Additional Inflation: 17.00atm for 9seconds. Post Stent Deployment Balloon Dilation A Balloon catheter NC Trek RX 2.25x12 was inserted and inflated up to 20.00atm for 10seconds. Additional Inflation: 22.00atm for 7seconds. Final angiography reveals 10 % stenosis with STEPHEN 3 flow. Conclusion #1 significant coronary arteries characterized by the following: A 30% distal left main coronary artery narrowing B 30% proximal and mid LAD narrowing with a patent proximal LAD [address] [address] CARDIAC CATH REPORT Name: VALERI DYER Room: [facility] M.R.#: [id number] Admission: 09/09/18 Attend Phys: Virgil Goff MD, Discharge: Date of : 62 Report #: [id number] stent C prominent though nondominant circumflex with 80% calcified proximal circumflex stenosis and 75% tubular narrowing of the prominent first marginal branch of the circumflex D dominant right coronary artery with 40% proximal 30% distal narrowing with total occlusion of a terminal posterolateral branch with ixpv-me-zqpnz collaterals filling that branch #2 normal left ventricular systolic function, estimate ejection fraction being 60% #3 normal left-sided hemodynamics study #4 successful percutaneous coronary intervention with deployment of drug-eluting stents at the sites of 75% tubular first marginal narrowing and 80% heavily calcified proximal circumflex stenosis with 0 and 10% residual narrowings following stent deployment and STEPHEN-3 flow to both distal circulations Recommendations Cardiac Risk Reduction Program Aggressive Medical Therapy Medications Administered Ticagrelor Diagnostic Cath Approved by: Virgil Goff MD Date/Time: 09/10/2018 11:14:55 <ELECTRONICALLY SIGNED> By: Virgil Goff MD, [facility] 09/10/18 1116 1116 [id number] Goff MD, [facility] /INF
--- NOTE | 2018-09-10 11:32 | D ---
[address] [address] DISCHARGE SUMMARY Name: VALERI DYER Room: [address] M.R.#: [id number] Admission: 09/09/18 Attend Phys: Virgil Goff MD, Discharge: Date of : 62 Report #: [id number] THIS REPORT FOR: //name// CC: Virgil Robin Freddie [place] DATE OF SERVICE: 09/10/2018 FINAL DISCHARGE DIAGNOSES: 1. Coronary artery disease, status post recent myocardial infarction. 2. Status post recent inferior wall myocardial infarction. 3. Status post percutaneous coronary intervention of the circumflex on 09/09/2018. 4. Hypertension. 5. Hyperlipidemia. 6. Type 2 diabetes. PROCEDURES: 09/09/2018 -- left heart catheterization, left ventriculography, selective coronary arteriography, percutaneous coronary intervention of the circumflex with deployment of drug-eluting stents in the first marginal branch of the circumflex and the proximal circumflex. The patient is a very pleasant 58-year-old male with a history of recent inferior infarction and remote anterior infarction. The recent one was acutely approached with stenting of the right coronary artery and the initial infarction was approached with acute stenting of the LAD. He was noted to have significant circumflex stenosis at the last catheterization which was not undertaken in the acute setting. The patient has underlying hypertension, hyperlipidemia and type 2 diabetes. He was admitted on 09/09/2018 for recatheterization, which revealed widely patent right coronary stents with total occlusion of the posterolateral branch with left to right collaterals filling that branch. There was a patent proximal LAD stent with 40% mid LAD narrowing. The circumflex revealed 80% proximal stenosis with 75% first marginal narrowing. I deployed one 2.75 x 12 mm [place] drug-eluting stent in the first marginal and one 2.25 x 18 mm Estuardo Medtronic drug-eluting stent in the proximal circumflex with 0 and 10% residual narrowing respectively and STEPHEN 3 flow of the distal vessel. The patient did well post-procedurally and ambulated in the hallways without difficulty with good hemostasis at the right femoral site of catheterization. Laboratory on 09/10/2018 revealed a sodium 138, potassium 4.1, BUN 14, creatinine 0.9, hemoglobin 12.1, white blood cell count 5300 with 141,000 [place] [address] DISCHARGE SUMMARY Name: VALERI DYER Room: [address]#: [id number] Admission: 09/09/18 Attend Phys: Virgil Goff MD, Discharge: Date of : 62 Report #: [id number]. Troponin was inconsequentially increased at 0.09. He ambulated without difficulty and as noted above there was good hemostasis at the right femoral site of catheterization. He was discharged to home on the following medications: Aspirin 81 mg daily, atorvastatin 40 mg at bedtime, carvedilol 3.125 mg b.i.d., Zetia 10 mg daily, Jardiance 10 mg daily, lisinopril 5 mg daily, metformin 500 mg b.i.d. to be resumed on 09/13/2018, ticagrelor or Brilinta 90 mg b.i.d., potassium chloride 10 mEq daily, p.r.n. sublingual nitroglycerin and oxycodone as needed for pain. He is scheduled to see, Mary Nunes, our nurse practitioner on 09/20/[address] Robin in 6 weeks for his continuing care. The aforementioned issues were discussed with the patient. Thus, the patient is discharged to home in stable condition on the aforementioned medications with followup as iterated above. Discharged from Room 207 on 09/10/2018. <ELECTRONICALLY SIGNED> By: Virgil Goff MD, FACC 09/10/18 1132 1012 1039Virgil Goff MD, FACC /nt
--- NOTE | 2018-09-10 13:07 | NUR ---
DISCHARGE ORDERS RECEIVED. DISCHARGE COMPELTED DOCUMENTED. DISCAHRGE SUMMARY GONE OVER WITH PT AND PT'S SPOUSE. PT COMMUNICATES UNDERSTANDING. PT CLEAR TO RETURN TO CARDIAC REHAB. ALL BELONGINGS GATHERED AND SENT WITH PT. IV AND FRUIT TRIMMER REMOVED. ALL NEEDS MET AT TIME OF DC. PT AWARE OF FOLLOW UP APPOINTMENTS. PT LEFT UNIT WITH NURSING STAFF. PT LEFT FACILITY IN CAR WITH SPOUSE.
[2018-09-10 23:12] LABS: GLYCOHEMOGLOBIN (HGB A1C) 7.1 % (4.8-5.6)
== END 2018-09-10 13:00 | disposition home or self-care (01) ==
LOC: M.CL 08:56 → M.TBA-CV 13:09 → M.2W 13:09
PROVIDERS: ADMIT Internal Medicine
DX: I25.10 Atherosclerotic heart disease of native coronary artery without angina pectoris (principal); I25.2 Old myocardial infarction; I10 Essential (primary) hypertension; E78.5 Hyperlipidemia, unspecified; E11.9 Type 2 diabetes mellitus without complications; Z79.01 Long term (current) use of anticoagulants; Z79.899 Other long term (current) drug therapy

== ENCOUNTER → 2018-12-07 | Outpatient (CLI) | payer OTHER ==
--- NOTE | 2018-12-07 16:44 | 2DMMODE ---
[place] [address] 2 D/M-MODE ECHOCARDIOGRAM Name: AKUAJULIANNERogerVALERI AUSTIN Room: [facility]#: [id number] Admission: 12/07/18 Attend Phys: DONNIE Dale Discharge: Date of : 62 Date of Service: 12/07/18 1644 Report #: [id number] THIS REPORT FOR: //name// APPROVED REPORT Study performed: 12/07/2018 09:23:53 EXAM: Limited 2D Echocardiogram Patient Location: Out-Patient BSA: 2.04 HR: 65 bpm BP: 124/67 mmHg Other Information Study Quality: Good Indications Aortic Valve Disease 2D Dimensions LVOT Diam: 20.61 (18-24mm) Aortic Valve AoV Peak Timoteo.: 1.93 m/s AO Peak Gr.: 14.92 mmHg LVOT Max P.79 mmHg AO Mean Gr.: 8.58 mmHg LVOT Mean P.07 mmHg LVOT Max V: 0.97 m/s AO V2 VTI: 42.40 cm LVOT Mean V: 0.67 m/s FORTINO (VTI): 1.97 cm2 LVOT V1 VTI: 25.09 cm Left Ventricle The left ventricle is normal size. There is normal LV segmental wall motion. Mild concentric left ventricular hypertrophy. Left ventricular systolic function is normal. LVEF is 55-60%. Aortic Valve Moderate aortic valve sclerosis. No aortic regurgitation is present. Mild aortic stenosis. Mitral Valve The mitral valve is normal in structure. Tricuspid Valve The tricuspid [place] [address] 2 D/M-MODE ECHOCARDIOGRAM Name: VALERI DYER Room: [facility]#: [id number] Admission: 12/07/18 Attend Phys: DONNIE Dale Discharge: Date of : 62 Date of Service: 12/07/181643 Report #: [id number] Pericardium There is no pericardial effusion. <Conclusion> The left ventricle is normal size. Mild concentric left ventricular hypertrophy. Left ventricular systolic function is normal. LVEF is 55-60%. Moderate aortic valve sclerosis. Mild aortic stenosis. <ELECTRONICALLY SIGNED> By: Roberto Daugherty MD, FACC 12/07/181643 43 43 Roberto Daugherty MD, FACC /INF
== END ==
LOC: M.CRD 09:00
DX: I35.0 Nonrheumatic aortic (valve) stenosis (principal); I51.7 Cardiomegaly

== ENCOUNTER 2019-04-18 07:46 | Emergency (ER) | payer OTHER ==
[~2019-04-18] VITALS: Ht 175.3 cm; Wt 90.0 kg
[2019-04-18 08:12] LABS: ABSOLUTE EOSINOPHILS 0.1 thou/uL (0.0-0.7); ABSOLUTE MONOCYTES 0.6 thou/uL (0.0-1.2); ABSOLUTE NEUTROPHILS 4.7 thou/uL (1.6-8.1); BASOPHILS 0.7 %; EOSINOPHILS 2.1 %; HEMATOCRIT 39.7 % (42.0-52.0); HEMOGLOBIN 13.2 gm/dL (14.0-18.0); MCH 20.8 pg (26.0-34.0); MCHC 33.2 g/dL (28.0-37.0); MCV 62.5 fL (80.0-100.0); MONOCYTES 9.1 %; MPV 8.5 fl. (7.2-11.1); NUCLEATED RBCS 0 /100WBC; PLATELET COUNT* 192 thou/uL (150-400); POLYS 73.1 %; RBC 6.34 mil/uL (4.50-6.00); RDW-CV 15.4 % (10.5-14.5); WBC 6.5 thou/uL (4.0-11.0)
[2019-04-18 08:23] LABS: ANION GAP 11 mmol/L (7-16); BUN 14 mg/dL (7-18); CALCIUM 8.9 mg/dL (8.5-10.1); CHLORIDE 99 mmol/L (98-107); CO2 24 mmol/L (21-32); GLUCOSE 197 mg/dL (70-99); SODIUM 134 mmol/L (136-145)
[2019-04-18 08:32] LABS: ALKALINE PHOSPHATASE 57 U/L (46-116); LIPASE 101 U/L (73-393); MAGNESIUM 1.7 mg/dL (1.8-2.4); NT-PRO BRAIN NAT PEPTIDE 204 pg/mL (<300); SGOT 23 U/L (15-37); SGPT 45 U/L (30-65); TOTAL BILIRUBIN 0.8 mg/dL (<0.1-1.0); TOTAL PROTEIN 6.7 g/dL (6.4-8.2); TROPONIN-I LEVEL <0.06 ng/mL (<0.06)
[2019-04-18 09:19] LABS: OVALOCYTES 1+; PLATELET ESTIMATE ADEQUATE
[2019-04-18 09:20] LABS: HYPOCHROMASIA Occasional
[2019-04-18 09:21] LABS: ANISOCYTOSIS 2+; MICROCYTES 2+; POIKILOCYTOSIS 1+
--- NOTE | 2019-04-18 10:34 | EKG ---
[place] [address] ELECTROCARDIOGRAM REPORT Name: VALERI DYER Room: [facility]#: [id number] Admission: 04/18/19 Attend Phys: Discharge: Date of : 62 Report #: [id number] THIS REPORT FOR: //name// [facility] ED Test Date: 2019-04-18 Test Time: 07:51:35 Pat Name: VALERI DYER Department: Room: Gender: M Sql Database Developer: : 1960 Requested By: Alex Castrejon Order Number: [id number] MD: Raúl Cedillo Measurements Intervals [place] Rate: 75 P: -3 [place]: 130 QRS: -49 QRSD: 101 T: 16 QT: 387 QTc: 433 Interpretive Statements Sinus rhythm LAD, consider left anterior fascicular block Low voltage, extremity leads Lead(s) V2 were not used for morphology analysis Compared to ECG 09/10/2018 08:05:56 First degree AV block no longer present Electronically Signed On 04-18-2019 10:33:58 CDT by Raúl Cedillo [email or web address] <ELECTRONICALLY SIGNED> By: Raúl Cedillo MD, [facility] 04/18/19 [phone] aRúl Cedillo MD, [facility] /EPI
[2019-04-18 12:01] VITALS: BP 141/84
--- NOTE | 2019-04-20 14:00 | CON ---
[address] [address] CONSULTATION Name: VALERI DYER GEOVANNA [id number] Admission: 04/18/19 Attend Phys: Discharge: 04/18/19 Date of : 62 Report #: [id number] THIS REPORT FOR: //name// CC: Alex De La Torre DO DATE OF SERVICE: 04/18/2019 CARDIOLOGY CONSULTATION HISTORY OF PRESENT ILLNESS: The patient is a 59-year-old male who I was asked to see in the Emergency Room today after complaining of lightheadedness. The patient has an extensive past medical history. He apparently had an abnormal stress test in 2006 and was admitted to [facility] in [facility]. He was found to have coronary artery disease, was transferred to [facility] on the [place] and had a coronary stent placed. He then presented here to [place] in August of this year with lightheadedness. He was found to be in an SVT. He complained of chest discomfort and noted to have ST segment changes. I performed a cardiac catheterization from the right femoral artery. The stent in the proximal LAD had a 30% restenosis. The circumflex had a 70% stenosis. The right coronary had a proximal 95% stenosis and the distal 95% stenosis. There was normal left ventricular function. There appeared to be some mitral regurgitation. He was given heparin. He was given amiodarone and converted to sinus rhythm. I then placed 3 drug-eluting stents in the right coronary artery. He was then brought back electively a month later by Dr. Goff and had a repeat cardiac catheterization from the right femoral artery. The stent in the LAD had no significant restenosis. A distal branch of the right coronary artery was occluded and filled by collaterals. Ejection fraction of 60%. Dr. Goff then placed stents in the marginal branch of the circumflex as well as the main circumflex artery. He has done fairly well since that time. He just had an echocardiogram done in December that showed normal left ventricular function, aortic sclerosis. There was evidence of mild aortic stenosis with peak gradient of 8 mmHg. No significant mitral regurgitation was noted. The patient continues to work out at the gym. Today, he was working out when he started to feel lightheaded and short of breath. He took his blood pressure and was high. He came to the Emergency Room and I was asked to see him for further evaluation and treatment. PAST MEDICAL HISTORY: Otherwise significant for kidney stone, treated by lithotripsy. He has had hernia repair, parathyroid surgery. He has a history of hypertension, diabetes, hyperlipidemia. MEDICATIONS: Include aspirin, Lipitor, carvedilol, Jardiance, Zetia, Prinivil, metformin, [place] [address] CONSULTATION Name: MANISHAVALERI AUSTIN Room: [facility] Shara#: [id number] Admission: 04/18/19 Attend Phys: Discharge: 04/18/19 Date of : 62 Report #: [id number] ALLERGIES: He has no known drug allergies. FAMILY HISTORY: He is adopted. SOCIAL HISTORY: He is . He and his live in [place]. 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 Quit smoking years ago. No longer drinks alcohol. REVIEW OF SYSTEMS: He has had no history of stroke, asthma, peptic ulcer disease, liver disease, kidney disease, cancer, psychiatric illness, or chronic skin condition. PHYSICAL EXAMINATION: GENERAL: Revealed a middle-aged male, lying in the stretcher. He appeared in no distress. VITAL SIGNS: He had a blood pressure 160/80, pulse is 80. He is afebrile. HEENT: He was anicteric. Conjunctivae pink. Mucous membranes moist. NECK: Veins do not appear distended. No carotid bruits. CHEST: Clear to auscultation. CARDIAC: Regular rate and rhythm. Grade 2 systolic ejection murmur. ABDOMEN: Soft. EXTREMITIES: Had no edema. Dorsalis pedis pulse 2+ bilaterally. SKIN: Warm, dry. NEUROLOGIC: Nonfocal. RADIOLOGICAL DATA: His ECG showed a sinus rhythm with nonspecific ST segment changes. His workup in the Emergency Room, he had a portable chest x-ray today that showed no acute abnormality. LABORATORY DATA: His lab work today, sodium 134, creatinine 1.0, glucose is 197. His liver function studies are normal. Troponin 0.06. In September, cholesterol was 108, triglycerides 57, HDL 52, LDL 45. His white blood cell count 6.5, hemoglobin 13.2. IMPRESSION AND RECOMMENDATIONS: 1. Episode of lightheadedness and shortness of breath after working on the treadmill. No evidence of acute coronary syndrome. I will continue aspirin and Brilinta. 2. History of supraventricular tachycardia. No recurrences on a beta-ruel. 3. Hypertension. The patient is on an OLEG inhibitor and beta-ruel. 4. Hyperlipidemia. The patient is on a statin drug. 5. Diabetes. <ELECTRONICALLY SIGNED> By: Raúl Cedillo MD, [facility] 04/20/19 1400 1112 [id number] Cedillo MD, FACC /nt
== END 2019-04-18 12:05 | disposition home or self-care (01) ==
LOC: M.ERS 07:46
PROVIDERS: Emergency Medicine Emergency Medical Services
DX: R07.89 Other chest pain (principal); I25.2 Old myocardial infarction; E78.5 Hyperlipidemia, unspecified; E11.9 Type 2 diabetes mellitus without complications; Z90.89 Acquired absence of other organs; Z87.442 Personal history of urinary calculi; Z98.890 Other specified postprocedural states

== ENCOUNTER → 2019-04-27 | Outpatient (CLI) | payer OTHER ==
--- NOTE | 2019-04-27 16:40 | CARDNUC ---
[place] [address] CARDIAC NUCLEAR IMAGING REPORT Name: VALERI DYER GEOVANNA Room: [facility]#: [id number] Admission: 04/27/19 Attend Phys: Mary Nunes Discharge: Date of : 62 Date of Service: 04/27/19 1639 Report #: [id number] THIS REPORT FOR: //name// APPROVED REPORT Imaging Protocol: Rest Tc-99m/Stress Tc-99m 1 day Study performed: 04/27/2019 14:37:29 Indication: Dyspnea Patient Location: Out-Patient Stress Tech: Erna Young Stress Nurse: Leonor Dutton RN NM Tech:PHILOMENA March Ht: 5 ft 5 in Wt: 180 lbs BSA: 1.89 m2 HR: 68 bpm BP: 137/89 mmHg BMI: 29.95 Rhythm: NSR Medical History Medical History: CAD s/p [place] Allergies: No known drug allergies Previous Cardiac Procedures: PCI Resting Data Rest SPECT myocardial perfusion imaging was performed in supine position 30 minutes following the intravenous injection of 11.1 mCi of Tc-99m Sestamibi. Time of rest injection: 1255 Date: 04/27/2019 The images were gated to evaluate regional wall motion and calculate left ventricular ejection fraction. Administration Route: IV Administration Site: Right AC Pharmacologic Stress Pharmacologic stress test was performed by injecting Regadenoson 0.4 mg IV push over 10-15 seconds immediately followed by the intravenous injection of 34.0 mCi of Tc-99m Sestamibi. Time of stress injection: 1435 Date: 04/27/2019 Administration Route: IV Administration Site: Right AC Gated Stress SPECT was performed 40 minutes after stress injection. The images were gated to evaluate regional wall motion and calculate left ventricular [place] [address] CARDIAC NUCLEAR IMAGING REPORT Name: VALERI DYER Room: [facility].#: [id number] Admission: 04/27/19 Attend Phys: Mary Nunes Discharge: Date of : 62 Date of Service: 04/27/19 1639 Report #: [id number] Prone imaging was performed. Stress Test Details HR Max Heart Rate (APMHR): 162 bpm Target HR (85% APMHR): 137 bpm BP ECG Resting ECG: Sinus Rhythm Stress ECG: Sinus Tachycardia ST Change: None Arrhythmia: None Recovery ECG: Sinus Rhythm Recovery ST Change: None Recovery Arrhythmia: None Clinical The patient tolerated Lexiscan infusion without significant cardiac symptoms. Stress ECG Conclusion Baseline 12-lead EKG shows sinus rhythm without significant ST or T wave abnormality. Obtained during and post Lexiscan infusion show sinus rhythm and sinus tachycardia with no significant ST or T wave changes when compared to baseline. There were no stress-induced arrhythmias. Study Quality Study: Good Artifact: No artifact Study Data At rest, the left ventricular ejection fraction was 57%.. Post stress, the left ventricular ejection was 73%.. TID = 1.15. Perfusion Myocardial perfusion images show a large in size severe intensity fixed defect involving the basal to mid inferior and inferoseptal wall. No other defects are identified. Wall Motion There is hypokinesis of the basal to mid inferior and inferoseptal wall. Overall left ventricular systolic function appears to be fairly well[place] [address] CARDIAC NUCLEAR IMAGING REPORT Name: AKUAJULIANNERogerVALERI AUSTIN Room: [facility]#: [id number] Admission: 04/27/19 Attend Phys: Mary Nunes Discharge: Date of : 62 Date of Service: 04/27/19 1639 Report #: [id number] Nuclear Conclusion ECG Findings: negative for ischemia Clinical Findings: negative for ischemia Nuclear Findings: negative for ischemia Exercise Capacity: not assessed Left Ventricular Function: preserved Perfusion images show evidence of prior inferior and inferoseptal wall myocardial infarction. There is no evidence of stress-induced ischemia. Global LV systolic function is fairly well-preserved. This is not a high risk study. <Conclusion> Baseline 12-lead EKG shows sinus rhythm without significant ST or T wave abnormality. Obtained during and post Lexiscan infusion show sinus rhythm and sinus tachycardia with no significant ST or T wave changes when compared to baseline. There were no stress-induced arrhythmias. <ELECTRONICALLY SIGNED> By: Roberto Daugherty MD, FACC 04/27/19 1639 1639 163 Roberto Daugherty MD, FACC /INF
== END ==
LOC: M.NUC 04-18 17:35
DX: I25.119 Atherosclerotic heart disease of native coronary artery with unspecified angina pectoris (principal); I10 Essential (primary) hypertension; E11.9 Type 2 diabetes mellitus without complications; E78.00 Pure hypercholesterolemia, unspecified; Z79.899 Other long term (current) drug therapy; Z95.5 Presence of coronary angioplasty implant and graft; Z87.891 Personal history of nicotine dependence

== ENCOUNTER 2019-06-21 09:53 | Observation (INO) | payer OTHER ==
[~2019-06-21] VITALS: Ht 175.3 cm; Wt 85.7 kg
[~2019-06-21 09:53] MED LIST changes: -ATORVASTATIN CA40 MG PO; +LIPITOR40 MG PO
[2019-06-21 09:58] VITALS: BP 123/80
[2019-06-21 10:19] LABS: ABSOLUTE BASOPHILS 0.1 thou/uL (0.0-0.2); ABSOLUTE EOSINOPHILS 0.2 thou/uL (0.0-0.7); ABSOLUTE LYMPHOCYTES 1.7 thou/uL (0.8-5.3); ABSOLUTE MONOCYTES 0.9 thou/uL (0.0-1.2); ABSOLUTE NEUTROPHILS 7.3 thou/uL (1.6-8.1); BASOPHILS 0.7 %; EOSINOPHILS 1.8 %; HEMATOCRIT 42.8 % (42.0-52.0); MCH 20.6 pg (26.0-34.0); MCHC 32.6 g/dL (28.0-37.0); MCV 63.2 fL (80.0-100.0); MONOCYTES 8.6 %; MPV 9.2 fl. (7.2-11.1); NUCLEATED RBCS 0 /100WBC; PLATELET COUNT* 237 thou/uL (150-400); POLYS 71.9 %; RBC 6.77 mil/uL (4.50-6.00); RDW-CV 15.3 % (10.5-14.5); WBC 10.1 thou/uL (4.0-11.0)
[2019-06-21 10:31] LABS: CALCIUM 9.3 mg/dL (8.5-10.1); CREATININE 1.2 mg/dL (0.6-1.3); POTASSIUM 4.1 mmol/L (3.5-5.1)
[2019-06-21 10:45] LABS: ALBUMIN 4.7 g/dL (3.4-5.0); CK-MB MASS 1.9 ng/mL (<0.5-3.6); TOTAL BILIRUBIN 0.9 mg/dL (<0.1-1.0); TOTAL PROTEIN 8.1 g/dL (6.4-8.2)
[2019-06-21 11:10] LABS: APTT 25.2 Seconds (25.0-31.3); PROTIME 10.5 Seconds (9.20-11.50)
[2019-06-21 11:11] LABS: HYPOCHROMASIA 3+; PLATELET ESTIMATE ADEQUATE
[2019-06-21 11:12] LABS: MICROCYTES 2+; POIKILOCYTOSIS 1+
[2019-06-21 11:13] LABS: OVALOCYTES Occasional
[2019-06-21 11:14] LABS: POLYCHROMASIA Occasional
[2019-06-21 12:10] VITALS: BP 97/60
[2019-06-21 15:53] VITALS: BP 103/63
[2019-06-21 16:41] VITALS: BP 103/63
--- NOTE | 2019-06-21 17:10 | EKG ---
[place] [address] ELECTROCARDIOGRAM REPORT Name: VALERI DYER Room: [address] M.R.#: [id number] Admission: 06/21/19 Attend Phys: Bailey Gillespie MD Discharge: Date of : 62 Report #: [id number] THIS REPORT FOR: //name// [facility] ED Test Date: 2019-06-21 Test Time: 10:00:42 Pat Name: VALERI DYER Department: Room: [facility] Gender: M Regulatory And Compliance Technician: : 1960 Requested By: Morro Garcia Order Number: [id number] MD: Roberto Daugherty Measurements Intervals [place] Rate: 129 P: SD: QRS: -31 QRSD: 98 T: 120 QT: 326 QTc: 478 Interpretive Statements Atrial tachycardia Left axis deviation Anterior infarct, old Nonspecific repol abnormality, diffuse leads Compared to ECG 04/18/2019 07:51:35 Left-axis deviation now present Myocardial infarct finding now present Early repolarization now present Electronically Signed On 06-21-2019 17:09:48 FINE GRADER by Roberto Daugherty [email or web address] <ELECTRONICALLY SIGNED> By: Roberto Daugherty MD, FACC 06/21/19 1709 1000 1000 Roberto Daugherty MD, FAC /EPI
--- NOTE | 2019-06-21 17:55 | NUR ---
PT ARRIVED TO UNIT VIA CART AT APPROX 1217, REPORT TAKEN FROM RICO VIERA. VSS, RA, MEMBER SERVICES REPRESENTATIVE TRACING SINUS RHYTHM, FULL ASSESSMENT CHARTED. UPON PT HAVING CARDIAC CONSULT, PT AND DR AGUILAR AGREED THAT PT WAS ON FOR OBSERVATION STATUS ONLY AND WOULD FOLLOW UP OUT PATIENT FOR POSSIBLE ABLATION, APPOINTMENT ARRANGED FOR PT. PT DISCHARGED HOME AT APPROX 1750 WITH , EDUCATED ON ALL DISCHARGE INSTRUCTIONS INCLUDING FOLLOW UP APPOINTMENTS AND MEDICATIONS, IV AND MEMBER SERVICES REPRESENTATIVE REMOVED.
--- NOTE | 2019-06-22 08:03 | CON ---
[address] [address] CONSULTATION Name: VALERI DYER Room: [address] Anastasiya M.R.#: [id number] Admission: 06/21/19 Attend Phys: Bailey Gillespie MD Discharge: 06/21/19 Date of : 62 Report #: [id number] THIS REPORT FOR: //name// CC: Raúl De La Torre DO INDICATION: SVT. HISTORY OF PRESENT ILLNESS: The patient is a pleasant 59-year-old gentleman with history of coronary artery disease and paroxysmal supraventricular tachycardia. He was admitted to the hospital with complaints of shortness of breath, dyspnea and fatigue and low blood pressure and fast heart rate. He was found to be in supraventricular tachycardia with rate of 129 beats per minute. He spontaneously converted to sinus rhythm. Once his heart rate decreased, he felt better. In this setting, he had a minimal bump in his troponin consistent with type 2 myocardial infarction from strain. The patient has a history of coronary artery disease with percutaneous coronary intervention to the right coronary artery and circumflex in the recent past. At the time of my interview, he is without complaint. PAST MEDICAL HISTORY: 1. Coronary artery disease. 2. Paroxysmal supraventricular tachycardia. 3. Nephrolithiasis. 4. Hypertension. 5. Dyslipidemia. 6. Type 2 diabetes mellitus. 7. Aortic stenosis. ALLERGIES: No known drug allergies. HOME MEDICATIONS: Metformin 500 mg p.o. b.i.d., aspirin 81 mg daily, atorvastatin 40 mg each day at bedtime, carvedilol 3.125 mg b.i.d., Zetia 10 mg daily, lisinopril 5 mg daily, Brilinta 90 mg b.i.d., Nitrostat 0.4 mg sublingual p.r.n. Jardiance 10 mg daily, potassium chloride 10 mEq daily. SOCIAL HISTORY: The patient does not smoke. He does not drink alcohol. FAMILY HISTORY: Noncontributory. PHYSICAL EXAMINATION: [place] [address] CONSULTATION Name: VALERI DYER Room: [address]#: [id number] Admission: 06/21/19 Attend Phys: Bailey Gillespie MD Discharge: 06/21/19 Date of : 62 Report #: [id number] VITAL SIGNS: Stable. Blood pressure 97/60, pulse 73 and regular. GENERAL: This is a pleasant gentleman in no distress. Mood and affect appropriate. HEENT: Extraocular muscles intact. Mucous membranes moist. NECK: Shows no jugular venous distention. There are no carotid bruits. CHEST: Reveals clear lung serna without wheezes, rales or rhonchi. CARDIOVASCULAR: Reveals a regular rhythm with grade 2/6 systolic ejection murmur. ABDOMEN: Reveals normal bowel sounds. The abdomen is soft, nontender. EXTREMITIES: Shows no edema. Peripheral pulses 2+ and easily palpable. IMPRESSION AND RECOMMENDATIONS: 1. Supraventricular tachycardia. The patient has spontaneously returned to sinus rhythm. Recommend outpatient EP evaluation. 2. Type 2 myocardial infarction secondary to supraventricular tachycardia with underlying coronary disease. No further cardiac workup planned at this time. 3. Coronary artery disease, presently stable. Continue home medications as outlined above. 4. Mild aortic stenosis. Continue serial echocardiograms. No need for intervention at this time. 5. Hypertension, presently stable. 6. Dyslipidemia. Continue atorvastatin at current dose. 7. Diabetes per primary physician. At this point in time, the patient appears stable for discharge from a cardiac standpoint. <ELECTRONICALLY SIGNED> By: Roberto Daugherty MD, FACC 06/22/19 0803 1427 2256Micgertrude Daugherty MD, FACC /nt
[2019-07-07] MEDS ORDERED: LISINOPRIL10 MG PO (07:06)
== END 2019-06-21 17:20 | disposition home or self-care (01) ==
LOC: M.ERS 09:53 → M.TBA-ER 11:11 → M.2W 11:11
PROVIDERS: Family Medicine; ADMIT Internal Medicine
DX: I47.1 Supraventricular tachycardia (principal); I25.10 Atherosclerotic heart disease of native coronary artery without angina pectoris; E11.9 Type 2 diabetes mellitus without complications; I25.2 Old myocardial infarction; E78.5 Hyperlipidemia, unspecified; I35.0 Nonrheumatic aortic (valve) stenosis; I25.5 Ischemic cardiomyopathy; Z79.84 Long term (current) use of oral hypoglycemic drugs; Z79.82 Long term (current) use of aspirin; Z79.899 Other long term (current) drug therapy

== ENCOUNTER 2021-07-09 08:48 | Emergency (ER) | payer OTHER ==
[~2021-07-09] VITALS: Ht 175.3 cm; Wt 86.2 kg
[~2021-07-09 08:48] MED LIST changes: +LISINOPRIL10 MG PO
[2021-07-09 10:29] LABS: ABSOLUTE EOSINOPHILS 0.1 thou/uL (0.0-0.7); ABSOLUTE LYMPHOCYTES 0.7 thou/uL (0.8-5.3); ABSOLUTE MONOCYTES 0.5 thou/uL (0.0-1.2); ABSOLUTE NEUTROPHILS 5.5 thou/uL (1.6-8.1); BASOPHILS 0.4 %; EOSINOPHILS 1.7 %; HEMATOCRIT 42.2 % (42.0-52.0); HEMOGLOBIN 13.6 gm/dL (14.0-18.0); LYMPHOCYTES 9.8 %; MCH 20.4 pg (26.0-34.0); MCHC 32.1 g/dL (28.0-37.0); MCV 63.4 fL (80.0-100.0); MONOCYTES 7.1 %; NUCLEATED RBCS 0 /100WBC; PLATELET COUNT* 166 thou/uL (150-400); RBC 6.66 mil/uL (4.50-6.00); RDW-CV 15.6 % (10.5-14.5); WBC 6.8 thou/uL (4.0-11.0)
[2021-07-09 10:31] LABS: CREATININE 1.1 mg/dL (0.6-1.3); POTASSIUM 4.4 mmol/L (3.5-5.1)
[2021-07-09 10:42] LABS: ALBUMIN 4.7 g/dL (3.4-5.0); TOTAL BILIRUBIN 0.6 mg/dL (<0.1-1.0); TOTAL PROTEIN 7.8 g/dL (6.4-8.2)
[2021-07-09 11:00] LABS: MICROCYTES 2+; PLATELET ESTIMATE ADEQUATE
[2021-07-09 11:01] LABS: ANISOCYTOSIS 1+; HYPOCHROMASIA 2+
--- NOTE | 2021-07-09 12:26 | EKG ---
[place] [address] ELECTROCARDIOGRAM REPORT Name: VALERI DYER Room: [facility]#: [id number] Admission: 07/09/21 Attend Phys: Discharge: Date of : 62 Date of Service: 07/09/21 1010 Report #: [id number] THIS REPORT FOR: //name// [facility] ED Test Date: 2021-07-09 Test Time: 10:10:21 Pat Name: VALERI DYER Department: Room: Gender: Coal Weigher: [facility] : 1960 Requested By: Alex Castrejon Order Number: [id number] MD: Raúl Cedillo Measurements Intervals [place] Rate: 69 P: 3 OR: 197 QRS: -42 QRSD: 105 T: -4 QT: 383 QTc: 411 Interpretive Statements Sinus rhythm septal q waves Left axis deviation Borderline low voltage, extremity leads Compared to ECG 06/21/2019 10:00:42 Ectopic atrial tachycardia, unifocal no longer present Electronically Signed On 07-09-2021 12:25:52 COFFEE PLANTATION WORKER by Raúl Cedillo [email or web address] <ELECTRONICALLY SIGNED> By: Raúl Cedillo MD, FAC 07/09/21 1225 1010 1010 Raúl Cedillo MD, [facility] /EPI
--- NOTE | 2021-07-09 12:28 | EKG ---
[place] [address] ELECTROCARDIOGRAM REPORT Name: VALERI DYER Room: [facility]#: [id number] Admission: 07/09/21 Attend Phys: Discharge: Date of : 62 Date of Service: 07/09/21 1137 Report #: [id number] THIS REPORT FOR: //name// [facility] ED Test Date: 2021-07-09 Test Time: 11:37:06 Pat Name: VALERI DYER Department: Room: Gender: Core Rescuer: : 1960 Requested By: Alex Castrejon Order Number: [id number] MD: Raúl Cedillo Measurements Intervals [place] Rate: 65 P: 15 TN: 198 QRS: -47 QRSD: 104 T: 4 QT: 393 QTc: 409 Interpretive Statements Sinus rhythm LAD, consider left anterior fascicular block Borderline low voltage, extremity leads Abnormal R-wave progression, late transition Compared to ECG 07/09/2021 10:10:21 no change Electronically Signed On 07-09-2021 12:28:35 SPORTS PHYSIOLOGIST by Raúl Cedillo [email or web address] <ELECTRONICALLY SIGNED> By: Raúl Cedillo MD, [facility] 07/09/21 1228 1137 1137 Raúl Cedillo MD, [facility] /EPI
[2021-07-09 13:54] VITALS: BP 128/73
== END 2021-07-09 13:55 | disposition home or self-care (01) ==
LOC: M.ERS 08:48
PROVIDERS: Emergency Medicine Emergency Medical Services
DX: R06.02 Shortness of breath (principal); R42 Dizziness and giddiness; E78.5 Hyperlipidemia, unspecified; E11.9 Type 2 diabetes mellitus without complications; Z79.82 Long term (current) use of aspirin; Z79.899 Other long term (current) drug therapy; Z87.442 Personal history of urinary calculi

== ENCOUNTER 2021-09-13 23:25 | Observation (INO) | payer BC ==
[~2021-09-13] VITALS: Ht 175.3 cm; Wt 89.8 kg
[2021-09-13 23:34] VITALS: BP 135/90
[2021-09-13] MEDS ORDERED: COQ-1030 MG PO (23:37)
[2021-09-14] VITALS (12 sets, daily range): BP systolic 96–172; BP diastolic 60–92
[2021-09-14 00:32] LABS: ABSOLUTE EOSINOPHILS 0.2 thou/uL (0.0-0.7); ABSOLUTE LYMPHOCYTES 0.6 thou/uL (0.8-5.3); ABSOLUTE MONOCYTES 0.6 thou/uL (0.0-1.2); BASOPHILS 0.8 %; EOSINOPHILS 3.1 %; HEMATOCRIT 40.4 % (42.0-52.0); HEMOGLOBIN 12.9 gm/dL (14.0-18.0); LYMPHOCYTES 11.6 %; MCH 20.4 pg (26.0-34.0); MCV 63.6 fL (80.0-100.0); MONOCYTES 10.9 %; MPV 8.8 fl. (7.2-11.1); NUCLEATED RBCS 0 /100WBC; PLATELET COUNT* 176 thou/uL (150-400); POLYS 73.6 %; RBC 6.35 mil/uL (4.50-6.00); RDW-CV 14.9 % (10.5-14.5); WBC 5.4 thou/uL (4.0-11.0)
[2021-09-14 00:40] LABS: CALCIUM 8.8 mg/dL (8.5-10.1); CREATININE 1.2 mg/dL (0.6-1.3); POTASSIUM 4.2 mmol/L (3.5-5.1)
[2021-09-14 00:50] LABS: ALBUMIN 4.2 g/dL (3.4-5.0); TOTAL BILIRUBIN 0.5 mg/dL (<0.1-1.0); TOTAL PROTEIN 7.1 g/dL (6.4-8.2)
[2021-09-14 02:41] LABS: PROTIME 10.3 Seconds (9.20-11.50)
[2021-09-14 08:24] LABS: CHOLESTEROL 105 mg/dL (<200); HDL CHOLESTEROL 46 mg/dL (>40); LDL CHOLESTEROL 52 mg/dL (<100); TC:HDL 2.3 Ratio (Not establshd); TRIGLYCERIDE 37 mg/dL (<150); VLDL 7 mg/dL (<40)
[2021-09-14 08:25] LABS: SERUM ASSESSMENT CL
--- NOTE | 2021-09-14 11:02 | EKG ---
[place] [address] ELECTROCARDIOGRAM REPORT Name: AKUAJULIANNERogerVALERI AUSTIN Room: [address]#: [id number] Admission: 09/14/21 Attend Phys: Bailey Gillespie, Discharge: Date of : 62 Date of Service: 09/13/21 2328 Report #: [id number] THIS REPORT FOR: //name// [facility] ED Test Date: 2021-09-13 Test Time: 23:28:35 Pat Name: VALERI DYER Department: Room: [facility] Gender: M Director Of Special Education: RODNEY : 1960 Requested By: Daly Polanco Order Number: [id number] MD: Virgil Goff Measurements Intervals [place] Rate: 65 P: 38 KS: 198 QRS: -27 QRSD: 107 T: 35 QT: 391 QTc: 407 Interpretive Statements Sinus rhythm Borderline left axis deviation Borderline low voltage, extremity leads Anteroseptal infarct, old possible Minimal ST depression, anterolateral leads Compared to ECG 07/09/2021 11:37:06 Myocardial infarct finding now present ST (T wave) deviation now present Electronically Signed On 09-14-2021 11:02:30 DATA ARCHITECT MANAGER by Virgil Goff [email or web address] <ELECTRONICALLY SIGNED> By: Virgil Goff MD, [facility] 09/14/21 1102 2328 2328 Virgil Goff MD, [facility] /EPI
[2021-09-14 15:02] LABS: CK-MB MASS 1.1 ng/mL (<0.5-3.6)
[2021-09-15 02:00] VITALS: BP 102/54
[2021-09-15 03:59] LABS: HEMATOCRIT 36.3 % (42.0-52.0); MCH 20.3 pg (26.0-34.0); MCHC 33.1 g/dL (28.0-37.0); MCV 61.3 fL (80.0-100.0); MPV 8.9 fl. (7.2-11.1); RBC 5.92 mil/uL (4.50-6.00); RDW-CV 14.9 % (10.5-14.5); WBC 6.3 thou/uL (4.0-11.0)
[2021-09-15 04:18] LABS: ALBUMIN 3.6 g/dL (3.4-5.0); CALCIUM 8.1 mg/dL (8.5-10.1); CREATININE 0.8 mg/dL (0.6-1.3); POTASSIUM 4.2 mmol/L (3.5-5.1); TOTAL BILIRUBIN 0.6 mg/dL (<0.1-1.0); TOTAL PROTEIN 6.3 g/dL (6.4-8.2)
[2021-09-15 05:01] LABS: CK-MB MASS 1.2 ng/mL (<0.5-3.6)
--- NOTE | 2021-09-15 05:42 | NUR ---
PT IS ABLE TO COMMUNICATE HIS NEEDS TO STAFF EFFECTIVELY. HE HAS DENIED THE NEED FOR PAIN MEDICATION UP TO THIS TIME. RIGHT GROIN CATH SITE DRESSING HAS BEEN C/D/I UP TO THIS TIME. MASTERSON PATENT UP TO THIS TIME; POSSIBLE REMOVAL TODAY. POSSIBLE DISCHARGE TODAY.
[2021-09-15 06:34] VITALS: BP 103/62
[2021-09-15 08:00] VITALS: BP 124/74
[2021-09-15] MEDS ORDERED: EFFIENT10 MG PO (09:36)
--- NOTE | 2021-09-15 11:53 | CARD ---
[address] [address] CARDIAC CATH REPORT Name: VALERI DYER Room: M.222-P [facility] M.R.#: [id number] Admission: 09/14/21 Attend Phys: Bailey Gillespie MD Discharge: Date of : 62 Report #: [id number] THIS REPORT FOR: cc: Freddie De La Torre Russell J. DO Holkins, John M. 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 Virgil Goff MD Web Developer; Dr. Roberto Daugherty MD Foil Stamp Operator; Gay Velasquez RN: Straightener Hand; Brittany Beyer RN: Monitor; RT MagR Scrub Procedures Performed Left Heart Cath w/wo Coronaries; HAIDER placement Revasc AMI Proximal Circumflex; HAIDER Placement LAD; Hemostasis with Angioseal. Indication Non-STEMI Risk Factors Hypercholesterolemia, Hypertension, Diabetes Previous Procedures/Diagnoses Previous PCI, Previous [place] Admission/Lab Medications/Medications given during procedure Thrombin Inhibitors, Platelet Aff. Inhib. Procedure Narrative The patient was brought urgently to the Cardiac Catheterization Laboratory and was prepped and draped in a sterile manner. The right femoral was infiltrated with 1% Lidocaine subcutaneous anesthesia. IV conscious sedation was used throughout procedure with appropriate monitoring and was performed in the presence of a registered nurse who was an independent trained observer other than the physician performing the procedure. A 6Fr [place] sheath was inserted [place] [address] CARDIAC CATH REPORT Name: VALERI DYER [address]: [address]#: [id number] Admission: 09/14/21 Attend Phys: Bailey Gillespie MD Discharge: Date of : 62 Report #: [id number] right femoral artery. Coronary angiography was performed using coronary diagnostic catheters. The right coronary system was accessed and visualized with a JR4 catheter. The left coronary system was accessed and visualized with a JL4 catheter. The left ventricle was accessed and visualized with a PIGTAIL catheter. Left ventricular/Aortic Valve gradient assessed via catheter pullback. Left ventriculogram was performed in NICOLE projection. Closure device was deployed with a 6 Fr Angioseal. There was no hematoma. Intraoperative Conscious Sedation Sedation start time: 12:03 Case end Time: 14:11 Fentanyl 50.0 mcg Versed 2.0 mg Fluoro Time: 45.7 minutes Dose: DAP [id number] cGycm2 3628 mGy Contrast Type and Amount: OMNIPAQUE 500ML Coronary Angiography The patient's coronary anatomy is right dominant. Diagnostic Cath Left Main Modest aneurysmal dilatation of the midportion of the left main coronary artery LAD 8090 % heavily calcified proximal stenosis with 50% mid vessel narrowing Circumflex 90% eccentric heavily calcified proximal circumflex stenosis with a widely patent first marginal stent and 30% mid first marginal narrowing Right Coronary Dominant vessel which is totally occluded proximally with prominent [id number] collaterals filling the distal right coronary artery Left Ventriculography The left ventricle is normal in size with normal contractility. The left ventricular ejection fraction is estimated to be 65%. Left ventricular wall motion abnormalities are not present. There is no mitral insufficiency. Hemodynamics The aortic pressure is 122/68 mmHg with a mean of 92 mmHg. The left ventricular pressure is 120/7 mmHg with a mean of mmHg. The left ventricular end diastolic pressure is 16 mmHg. There was no gradient across the aortic valve upon [place] [address] CARDIAC CATH REPORT Name: VALERI DYER Room: [address] M.R.#: [id number] Admission: 09/14/21 Attend Phys: Bailey Gillespie MD Discharge: Date of : 62 Report #: [id number] PCI Technique Lesion Anticoagulation was achieved with Angiomax. Percutaneous coronary intervention was performed on the Proximal Circumflex. The lesion stenosis prior to intervention was 90% with STEPHEN 3 flow. A XB LAD 3.5 Guide Catheter was used to engage the Left main ostium. A BMW 190 cm Interventional Guidewire was used to cross the lesion. BALLOON DILATION A Balloon catheter Mini Trek RX 1.5mm x 8 mm was inserted and inflated up to 16atm for 13seconds. Additional Inflation: 18atm for 8seconds. Additional Inflation: 20atm for 11seconds. Additional Inflation: 22atm for 9 seconds. A Balloon catheter Mini Trek RX 2.0 x8 mm was inserted and inflated up to 12 paulie for 8 seconds. Additional inflation 12 paulie for 9 sec; Additional Inflation 12atm for 10 sec, additional inflation 14 paulie for 9 sec and 17 paulie for 15 seconds. Stent was attempted and would not cross. An MC Trek 2.25x8 was inserted and removed due to no cross. A ballook catheter TreK 2.25 x 8 was inserted and inflated up to 12 paulie for 9 sec; 15 paulie for 10 seconds and 16atm for 6 seconds. Stent was reattempted and could not cross. A 2.5 mm x 8mm Trek balloon was inserted and inflated to 8 paulie for9 sec and 8 paulie for 6 seconds. Followed by 8 paulie for 9 seconds and 12 paulie for 16 and 14 paulie for 14 seconds. STENT DEPLOYMENT A 2.0 mm x 8mm stent Drug eluting Medronic Estuardo stent was inserted and inflated up to 14atm for 19seconds. Additional Inflation: 16atm for 10seconds. Additional Inflation: 18atm for 9seconds. Additional Inflation 24 paulie for 11 seconds and 25 paulie for 11 seconds Final angiography reveals 10 % stenosis with STEPHEN 3 flow. COMMENTS PCI was technically complex by virtue of marked calcification of the proximal circumflex with an angulated entry into the proximal circumflex from the distal left main coronary artery. This required difficult wiring and significant lesion preparation prior to stent deployment. PCI Technique Lesion 2 Percutaneous Coronary Intervention was performed on the Proximal LAD. The lesion stenosis prior to intervention was 8090% with STEPHEN [address] [address] CARDIAC CATH REPORT Name: VALERI DYER Room: [address]R.#: [id number] Admission: 09/14/21 Attend Phys: Bailey Gillespie MD Discharge: Date of : 62 Report #: [id number] Balloon Dilation A Balloon catheter NC TreK 3.25x12 was inserted and inflated up to 18atm for 14seconds. Additional Inflation: 22atm for 9seconds. Additional Inflation: 25atm for 10seconds. Stent Deployment A Xience 3.25 x 12 stent Drug eluding was inserted and inflated up to 12atm for 8seconds. Additional Inflation: 20atm for 19seconds. Final angiography reveals 1020 % stenosis with STEPHEN 3 flow. Conclusion 1. Non-STEMI 2. Severe coronary artery disease characterized by the following: A modest aneurysmal dilatation of the midportion of the left main coronary artery B 80-90% heavily calcified proximal LAD stenosis with 50% mid vessel narrowing C 90% eccentric calcified stenosis in the proximal circumflex with a widely patent first marginal branch stent D dominant right coronary artery which is totally occluded proximally with left to right collaterals filling the distal right coronary artery 2. Normal LV function, estimated ejection fraction being 65% 3 mild elevation of left ventricular end-diastolic pressure at rest 4. Successful PCI with deployment of a drug-eluting stent at the site of 90% eccentric proximal circumflex stenosis with 10% residual narrowing and STEPHEN-3 flow to the distal vessel 5. Successful PCI with deployment of a drug-eluting stent at the site of 80-90% heavily calcified proximal LAD stenosis with 10-20% residual narrowing and STEPHEN-3 flow to the distal vessel Recommendations Cardiac Risk Reduction Program [address] [address] CARDIAC CATH REPORT Name: VALERI DYER Room: M222-P [facility] MJuanRJuan#: [id number] Admission: 09/14/21 Attend Phys: Bailey Gillespie MD Discharge: Date of : 62 Report #: [id number] Aggressive Medical Therapy Medications Administered Aspirin (any) Prasugrel Diagnostic Cath Approved by: Roberto Daugherty MD Date/Time: 09/15/2021 11:47:19 <ELECTRONICALLY SIGNED> By: Virgil Goff MD, FACC 09/15/21 1153 115 1153Virgil Goff MD, FACC /INF
[2021-09-15 13:10] VITALS: BP 104/67
[2021-09-15 13:27] VITALS: BP 104/67
--- NOTE | 2021-09-15 14:01 | NUR ---
ASSUMED PT CARE AT 0730. PT IS A&OX4. ASSESSMENT COMPLETED, DRESSING TO R GROIN IS DRY AND INTACT. MASTERSON REMOVED AND PT VOIDED WITHOUT DIFFICULTY.NEW ORDER TO DISCHARGE PT. ORDERS REVIEWED WITH PT AND SPOUSE WHO VERBALIZE UNDERSTANDING. HEART MONITOR REMOVED AND IV DC'D. PT LEFT AT APPROX 1335 WITH SPOUSE VIA CAR.
--- NOTE | 2021-09-16 13:45 | EKG ---
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: - : 1960 Requested By: Roberto Daugherty Order Number: [id number] Reading MD: Raúl Cedillo Measurements Intervals [place] Rate: 61 P: 14 MO: 207 QRS: -37 QRSD: 107 T: 16 QT: 433 QTc: 437 Interpretive Statements Sinus rhythm Borderline prolonged MO interval Left axis deviation Low voltage, extremity leads Compared to ECG 09/13/2021 23:28:35 Myocardial infarct finding no longer present ST (T wave) deviation no longer present Electronically Signed On 09-16-2021 13:45:35 BACON DE RINDER by Raúl Cedillo [email or web address] <ELECTRONICALLY SIGNED> By: Raúl Cedillo MD, FACC 09/16/21 1345 0430 0430 Raúl Cedillo MD, FAC /EPI
--- NOTE | 2021-09-16 15:57 | EKG ---
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 : 1960 Requested By: Roberto Daugherty Order Number: [id number] Turner MD: Raúl Cedillo Measurements Intervals [place] Rate: 67 P: 34 [place]: 191 QRS: -15 QRSD: 105 T: 22 QT: 391 QTc: 413 Interpretive Statements Sinus rhythm nonspecific t wave changes Borderline left axis deviation Low voltage, extremity leads Compared to ECG 09/13/2021 23:28:35 no change Electronically Signed On 09-16-2021 15:57:21 LABORATORY SPECIALIST by Raúl Cedillo [email or web address] <ELECTRONICALLY SIGNED> By: Raúl Cedillo MD, [facility] 09/16/21 1557 1541 1541 Raúl Cedillo MD, FAC /EPI
== END 2021-09-15 13:35 | disposition home or self-care (01) ==
LOC: M.ERS 23:25 → M.TBA-ER 09-14 01:34 → M.2W 09-14 03:06
PROVIDERS: Internal Medicine Cardiovascular Disease; Personal Emergency Response Attendant; Registered Nurse; ADMIT Internal Medicine; ATTEND Internal Medicine
DX: I25.10 Atherosclerotic heart disease of native coronary artery without angina pectoris (principal); I21.4 Non-ST elevation (NSTEMI) myocardial infarction; Z20.822 Contact with and (suspected) exposure to COVID-19; I47.1 Supraventricular tachycardia; I65.21 Occlusion and stenosis of right carotid artery; E11.9 Type 2 diabetes mellitus without complications; E78.5 Hyperlipidemia, unspecified; I10 Essential (primary) hypertension; Z79.82 Long term (current) use of aspirin; Z79.899 Other long term (current) drug therapy; Z79.84 Long term (current) use of oral hypoglycemic drugs; Z87.891 Personal history of nicotine dependence